=== PATIENT | female | born 1990 | race Caucasian/White ===

== ENCOUNTER → 2018-12-12 | Outpatient (CLI) | payer OTHER ==
--- NOTE | 2018-12-12 11:37 | REPVR ---
EXAM: MR Head Without Contrast EXAM DATE/TIME: 12/12/2018 9:32 AM CLINICAL HISTORY: 28 years old, female; Other: Headache; Additional info: Migraine without aura TECHNIQUE: Imaging protocol: MR of the head without contrast. COMPARISON: No relevant prior studies available. FINDINGS: Brain: No evidence of acute cortical infarct. No evidence of restricted diffusion. No abnormal magnetic susceptibility signal changes. No intracranial hemorrhage. Prominent CSF equivalent spaces in the right frontal white matter at the high and superventricular levels. Correlation with postcontrast imaging recommended to be certain that there is not an underlying AVM. Differential diagnosis would include prominent perivascular spaces. Slightly prominent perivascular spaces in the sublenticular region bilaterally. Background of mild confluent nonspecific Flair/T2 hyperintensities within the cerebral white matter.This has a broad differential diagnosis including migrainous angiopathy, premature small vessel ischemic change or demyelinating disease. Please correlate clinically. No basal ganglion, thalami, midbrain, brainstem or cerebellar mass. No Chiari malformation. No CP angle mass. Ventricles: The ventricular system is midline and appropriate in size. No hydrocephalus. Bones/joints: No suspicious marrow replacing lesions. Soft tissues: Normal. Sinuses: The demonstrated paranasal sinuses are free of air-fluid level or suspicious mass. Mastoid air cells: Mastoids are free of acute inflammatory change. Orbits: The optic chiasm is normal. No pituitary region mass. No suspicious orbital mass. Vasculature: Normal vascular flow voids are present. IMPRESSION: No evidence of acute ischemia, hemorrhage or mass effect. Prominent CSF equivalent spaces in the right frontal white matter at the high and superventricular levels. Correlation with postcontrast imaging recommended to be certain that there is not an underlying AVM. Differential diagnosis would include prominent perivascular spaces. Slightly prominent perivascular spaces in the sublenticular region bilaterally. Background of mild confluent nonspecific Flair/T2 hyperintensities within the cerebral white matter prominent for age. This has a broad differential diagnosis including migrainous angiopathy, premature small vessel ischemic change or demyelinating disease. Please correlate clinically. Electronically signed by: Galen Delacruz On 12/12/2018 11:37:05 AM
== END ==
LOC: M RAD 08:37
PROVIDERS: ATTEND Family Medicine
DX: G43.009 Migraine without aura, not intractable, without status migrainosus (principal); H81.10 Benign paroxysmal vertigo, unspecified ear

== ENCOUNTER 2020-10-24 21:52 | Emergency (ER) | payer OTHER ==
[~2020-10-24] VITALS: Ht 157.5 cm; Wt 75.0 kg
[2020-10-24] MEDS ORDERED: PROP10TA56 PO (22:05)
[2020-10-24] MEDS ORDERED: PROZ40CA PO (22:05)
[2020-10-24] MEDS ORDERED: ATIV1TAB10 PO (22:05)
[2020-10-24] MEDS ORDERED: LAMI200T PO (22:05)
[2020-10-24] MEDS ORDERED: AMBI10TA PO (22:05)
--- NOTE | 2020-10-25 00:22 | REPVR ---
PROCEDURE INFORMATION: Exam: XR Left Ankle Exam date and time: 10/24/2020 11:12 PM Age: 30 years old Clinical indication: Other: Fall and twisted; Additional info: Fall and twisted his ankle TECHNIQUE: Imaging protocol: XR Left ankle. Views: 3 or more views. COMPARISON: No relevant prior studies available. FINDINGS: Bones/joints: No fracture. No dislocation. Joint spaces are preserved. Soft tissues: Normal. IMPRESSION: No acute fracture. Electronically signed by: Josse Taylor On 10/25/2020 00:21:38 AM
[2020-10-25 01:45] VITALS: BP 123/67
== END 2020-10-25 01:47 | disposition home or self-care (01) ==
LOC: M ED 21:52
DX: S93.402A Sprain of unspecified ligament of left ankle, initial encounter (principal); X50.9XXA Other and unspecified overexertion or strenuous movements or postures, initial encounter; Y92.009 Unspecified place in unspecified non-institutional (private) residence as the place of occurrence of the external cause; Y93.89 Activity, other specified; Y99.8 Other external cause status; F31.9 Bipolar disorder, unspecified; F17.210 Nicotine dependence, cigarettes, uncomplicated; Z79.899 Other long term (current) drug therapy; Z88.8 Allergy status to other drugs, medicaments and biological substances; Z88.5 Allergy status to narcotic agent; Z87.820 Personal history of traumatic brain injury

== ENCOUNTER → 2021-02-27 | Outpatient (CLI) | payer OTHER ==
[~2021-02-27] MED LIST: AMBI10TA PO; ATIV1TAB10 PO; LAMI200T PO; PROP10TA56 PO; PROZ40CA PO
--- NOTE | 2021-02-27 09:30 | REP ---
INDICATION: MARYLIN BREAST PAIN. COMPARISON: None TECHNIQUE: Real-time sonographic evaluation of entire bilateral breasts performed. FINDINGS: No cystic or solid mass is seen. IMPRESSION: BIRADS/ACR category 1, negative whole breast ultrasound bilaterally. RECOMMENDATION: Clinical follow-up. <Electronically signed by Orlando Stahl > 02/27/21 0992
== END ==
LOC: M WHC 07:30
DX: N64.4 Mastodynia (principal)

== ENCOUNTER 2021-03-31 20:02 | Emergency (ER) | payer OTHER ==
[~2021-03-31] VITALS: Ht 160 cm; Wt 78.6 kg
[2021-03-31 20:03] VITALS: BP 119/81
[2021-03-31] MEDS ORDERED: METF-839 PO (20:09)
[2021-03-31] MEDS ORDERED: LITH300T2 PO (20:09)
--- OUTSIDE RECORDS SUMMARY | 2021-03-31 20:09 | CCD ---
Author Author [facility] Address Unknown Phone Unavailable Care Team Providers Care Bioinformatics Programmer Name Role Phone Reg Lucia Unavailable PROBLEMS ALLERGIES ENCOUNTERS from 1988 to 2021-03-04 IMMUNIZATIONS SOCIAL HISTORY REASON FOR REFERRAL No Information VITAL SIGNS MEDICATIONS PROCEDURES No Information RESULTS No Results REASON FOR VISIT MEDICAL (GENERAL) HISTORY Goals Section Health Concerns MEDICAL EQUIPMENT No Information MENTAL STATUS FUNCTIONAL STATUS ASSESSMENTS No Information PLAN OF TREATMENT Insurance Providers
--- OUTSIDE RECORDS SUMMARY | 2021-03-31 20:09 | CCD ---
Author Author [facility] Organization [facility] Address Unknown Phone Unavailable Care Team Providers Care Neurology Physician Name Role Phone Alessandra Lipscomb Unavailable PROBLEMS Type Condition ICD9-CM Code [id number] Code Onset Dates Condition S tatus W/U Status Risk SNOMED Code Notes Problem Adjustment disorder with mixed anxiety and depressed mood F43.23 Active confirmed 41814805 Problem Mixed hyperlipidemia E78.2 Active confirmed 111794072 Problem Allergic rhinitis due to pollen, unspecified seasonality J30.1 Active confirmed 60262585 Problem Dyspareunia in female N94.10 Active confirmed 90617989 Problem Bipolar 1 disorder, depressed, mild F31.31 Acti ve confirmed 68125474 Problem Migraine without aura and without status migrain osus, not intractable G43.009 Active confirmed 181482204 Problem PCOS (polycystic ovarian syndrome) E28.2 Activ e confirmed 915580357 Problem Adjustment disorder with anxiety F43.22 Active conf irmed 10797298 Problem History of bulimia Z86.59 Active confirmed 1 86292285860817 Problem Severe depression F32.2 Active confirmed 31 4851831 Problem Bipolar 1 disorder F31.9 Active confirmed 3 02763062 By History and Client report Problem Panic F41.0 Active confirmed 29552630 Problem Dysplasia of cervix, high grade ALFONSO 2 N87.1 Ac tive confirmed 121147505 Problem Moderately severe depression F32.2 Active confirme d 753904040 Problem Cervical high risk HPV (human papillomavirus) test positiv e R87.810 Active confirmed 001145495 Problem Cervical high risk human papillomavirus (HPV) DN A test positive R87.810 Active confirmed 081072189 Problem Vitamin D deficiency E55.9 Active confirmed 29414203 Problem Anorexia nervosa F50.00 Active confirmed 568 16125 Problem Anorexia nervosa with bulimia F50.02 Active confirm ed 80121417 Problem Unspecified mood [affective] disorder F39 Ac tive confirmed 37939316 Problem Borderline personality disorder F60.3 Active confi rmed 31516185 ALLERGIES Allergen (clinical drug ingredient) Drug/Non Drug Allergy do cumented on EMR Reaction Allergy Type Onset Date Status fentanyl Fentanyl([facility] Code:[address]-50) Shallow breathing Drug Al lergy Active Vicodin nausea Drug Allergy Active hydromorphone Dilaudid([facility] Code:[address]-66) Pain Drug Allerg y Active ibuprofen Ibuprofen([facility] Code:[address]-16) Nausea Drug Allergy Active ENCOUNTERS from 1988 to 2021-03-17 Encounter Location Date Provider Diagnosis [address] [address] Feb, Alessandra Deisi Vitamin D deficiency E55.9 IMMUNIZATIONS Vaccine Route Administration Date Status Influenza preservative free IM Intramuscular Mar 04, 2020 Adm inistered Influenza preservative free IM Intramuscular Feb 17, 2019 Adm inistered Influenza preservative free IM Intramuscular May 31, 2018 Adm inistered SOCIAL HISTORY Tobacco Use: Social History Observation Description Date Details (start date - stop date) Current Smoker Sex Assigned At : Social History Observation Description Sex Assigned At Female Alcohol Screen Question Answer Notes Did you have a drink containing alcohol in the past year? Ye s Points 1 Interpretation Negative How often did you have a drink containing alcohol in t he past year? Monthly or less (1 point) Tobacco Use/Smoking Question Answer Notes Are you a current smoker Are you interested in quitting? Thinking about quitting How many cigarettes a day do you smoke? 11-20 How soon after you wake up do you smoke your first cigarette ? 6-30 minutes How often do you smoke cigarettes? every day REASON FOR REFERRAL No Information VITAL SIGNS No information MEDICATIONS Medication SIG (Take, Route, Frequency, Duration) Notes Start Da te End Date Status Ergocalciferol 1.25 MG (57750 UT) 1 capsule Orally qweek 2 May, Active LaMICtal 100 MG 1 tablet Orally Once a day for 30 days Oct, Active Fluticasone Propionate 50 MCG/ACT 1 spray in each nost ril Nasally Once a day for 30 day(s) Dec, Not-Taking Ativan 0.5 MG 1 tablet at bedtime as needed Orally Once a day: MDD 1 tab 11 Apr, 2020 Active lamoTRIgine 200 MG 1 tablet Orally qd May, Active PROzac 20 MG 3 capsule Orally Once a day Active metFORMIN HCl 500 MG 1 tablet with a meal Orally Once a day for 30 days Feb, Active [place] Carbonate 300 MG 1 tablet at bedtime Orally Once a day Oct, Active PROCEDURES No Information RESULTS No Results REASON FOR VISIT refill MEDICAL (GENERAL) HISTORY Type Description Date Medical History Bipolar Depression Medical History PCOS Medical History HPV - always has abnormal Paps Medical History MRSA - abcesses on buttocks and leg Medical History Esophageal ulcer Surgical History Kidney Stone Removal 03/2017 Surgical History Cholecystectomy 07/2016 Surgical History Hernia repair 2000 Surgical History Leep procedure Surgical History Tubal ligation 04/2020 Hospitalization History Migraines and fluid on brain Hospitalization History child Goals Section No Information Health Concerns No Information MEDICAL EQUIPMENT No Information MENTAL STATUS No Information FUNCTIONAL STATUS No Information ASSESSMENTS Encounter Date Diagnosis Assessment Notes Treatment Notes Treatm ent Clinical Notes Feb, Vitamin D deficiency (ICD-10 - E55.9) PLAN OF TREATMENT Medication Medication Name Sig Start Date Stop Date Ergocalciferol 1.25 MG (65499 UT) 1 capsule Orally qweek May, PROzac 20 MG 3 capsule Orally Once a day metFORMIN HCl 500 MG 1 tablet with a meal Orally Once a day for 30 days Feb, lamoTRIgine 200 MG 1 tablet Orally qd May, Ativan 0.5 MG 1 tablet at bedtime as needed Orally Onc e a day: MDD 1 tab Apr, [place] Carbonate 300 MG 1 tablet at bedtime Orally Once a day 2 3 Oct, 2020 Next Appt Details Provider Name:Mavis Argueta, 2021-02 09:00:00 AM, [address] [place] [address], [phone], Provider Name:Alessandra Lipscomb, 04-04 09:00:00 AM, [address] [place] [address], [phone], Provider Name:Mavis Argueta, 2021-03 09:00:00 AM, [address] [place], [phone], Provider Name:Reg Lucia, 2022-02-10 0 1:00:00 PM, [address] [place], [address], Insurance Providers Payer Name Payer Address Payer Phone Insured Name Patient Relati onship to Insured Coverage Start Date Coverage End Date [facility] [employer] MEDICAID [address] [facility] [id number] Josephine Glover
[2021-03-31] MEDS ORDERED: ERGO500029 PO (20:10)
--- OUTSIDE RECORDS SUMMARY | 2021-03-31 20:10 | CCD ---
Author Author [facility] Organization [facility] Address Unknown Phone Unavailable Care Team Providers Care Soils Analyst Name Role Phone Larkin, Fracisco PA Unavailable Unavailable Larkin, Fracisco PA Unavailable Unavailable Larkin, Fracisco PA Unavailable Unavailable Larkin, Fracisco PA Unavailable Unavailable Larkin, Fracisco PA Unavailable Unavailable Larkin, Fracisco PA Unavailable Unavailable Larkin, Fracisco PA Unavailable Unavailable Larkin, Fracisco PA Unavailable Unavailable Larkin, Fracisco PA Unavailable Unavailable Larkin, Fracisco PA Unavailable Unavailable Larkin, Fracisco PA Unavailable Unavailable Larkin, Fracisco PA Unavailable Unavailable Larkin, Fracisco PA Unavailable Unavailable EMILIA RIVAS MD Unavailable Unavailable EMILIA RIVAS MD Unavailable Unavailable EMILIA RIVAS MD Unavailable Unavailable EMILIA RIVAS MD Unavailable Unavailable EMILIA RIVAS MD Unavailable Unavailable EMILIA RIVAS MD Unavailable Unavailable EMILIA RIVAS MD Unavailable Unavailable EMILIA RIVAS MD Unavailable Unavailable EMILIA RIVAS MD Unavailable Unavailable EMILIA RIVAS MD Unavailable Unavailable EMILIA RIVAS MD Unavailable Unavailable EMILIA RIVAS MD Unavailable Unavailable EMILIA RIVAS MD Unavailable Unavailable MARY, J ESTELA DO Unavailable Unavailable MARY, J ESTELA DO Unavailable Unavailable MARY, J ESTELA DO Unavailable Unavailable MARY, J ESTELA DO Unavailable Unavailable MARY, J ESTELA DO Unavailable Unavailable MARY, J ESTELA DO Unavailable Unavailable MARY, J ESTELA DO Unavailable Unavailable MARY, J ESTELA DO Unavailable Unavailable MARY, J ESTELA DO Unavailable Unavailable MARY, J ESTELA DO Unavailable Unavailable MARY, J ESTELA DO Unavailable Unavailable MARY, J ESTELA DO Unavailable Unavailable MARY, J ESTELA DO Unavailable Unavailable MARY, J ESTELA DO Unavailable Unavailable MARY, J ESTELA DO Unavailable Unavailable MARY, J ESTELA DO Unavailable Unavailable MARY, J ESTELA DO Unavailable Unavailable MARY, J ESTELA DO Unavailable Unavailable MARY, J ESTELA DO Unavailable Unavailable MARY, J ESTELA DO Unavailable Unavailable MARY, J ESTELA DO Unavailable Unavailable MARY, J ESTELA DO Unavailable Unavailable MARY, J ESTELA DO Unavailable Unavailable MARY, J ESTELA DO Unavailable Unavailable MARY, J ESTELA DO Unavailable Unavailable MARY, J ESTELA DO Unavailable Unavailable MARY, J ESTELA DO Unavailable Unavailable IVEY SR, JESENIA WNAG MD Unavailable Unavailable IVEY SR, JESENIA WANG MD Unavailable Unavailable IVEY SR, JESENIA WANG MD Unavailable Unavailable IVEY SR, JESENIA WANG MD Unavailable Unavailable IVEY SR, JESENIA WANG MD Unavailable Unavailable IVEY SR, JESENIA WANG MD Unavailable Unavailable IVEY SR, JESENIA WANG MD Unavailable Unavailable IVEY SR, JESENIA WANG MD Unavailable Unavailable IVEY SR, JESENIA WANG MD Unavailable Unavailable IVEY SR, JESENIA WANG MD Unavailable Unavailable IVEY SR, JESENIA WANG MD Unavailable Unavailable IVEY SR, JESENIA WAGN MD Unavailable Unavailable IVEY SR, JESENIA WANG MD Unavailable Unavailable IVEY SR, JESENIA WANG MD Unavailable Unavailable IVEY SR, JESENIA WANG MD Unavailable Unavailable IVEY SR, JESENIA WANG MD Unavailable Unavailable IVEY SR, JESENIA WANG MD Unavailable Unavailable IVEY SR, JESENIA WANG MD Unavailable Unavailable IVEY SR, JESENIA WANG MD Unavailable Unavailable IVEY SR, JESENIA WANG MD Unavailable Unavailable IVEY SR, JESENIA WANG MD Unavailable Unavailable IVEY SR, JESENIA WANG MD Unavailable Unavailable IVEY SR, JESENIA WANG MD Unavailable Unavailable IVEY SR, JESENIA WANG MD Unavailable Unavailable IVEY SR, JESENIA WANG MD Unavailable Unavailable IVEY SR, JESENIA WANG MD Unavailable Unavailable IVEY SR, JESENIA WANG MD Unavailable Unavailable IVEY SR, JESENIA WANG MD Unavailable Unavailable IVEY SR, JESENIA WANG MD Unavailable Unavailable IVEY SR, JESENIA WANG MD Unavailable Unavailable IVEY SR, JESENIA WANG MD Unavailable Unavailable IVEY SR, JESENIA WANG MD Unavailable Unavailable IVEY SR, JESENIA WANG MD Unavailable Unavailable IVEY SR, JESENIA WANG MD Unavailable Unavailable IVEY SR, JESENIA WANG MD Unavailable Unavailable IVEY SR, JESENIA WANG MD Unavailable Unavailable IVEY SR, JESENIA WANG MD Unavailable Unavailable IVEY SR, JESENIA WANG MD Unavailable Unavailable IVEY SR, JESENIA WANG MD Unavailable Unavailable IVEY SR, JESENIA WANG MD Unavailable Unavailable IVEY SR, JESENIA WANG MD Unavailable Unavailable IVEY SR, JESENIA WAGN MD Unavailable Unavailable IVEY SR, JESENIA WANG MD Unavailable Unavailable IVEY SR, JESENIA WANG MD Unavailable Unavailable IVEY SR, JESENIA WANG MD Unavailable Unavailable IVEY SR, JESENIA WANG MD Unavailable Unavailable IVEY SR, JESENIA WANG MD Unavailable Unavailable IVEY SR, JESENIA WANG MD Unavailable Unavailable IVEY SR, JESENIA WANG MD Unavailable Unavailable IVEY SR, JESENIA WANG MD Unavailable Unavailable IVEY SR, JESENIA WANG MD Unavailable Unavailable IVEY SR, JESENIA WANG MD Unavailable Unavailable IVEY SR, JESENIA WANG MD Unavailable Unavailable IVEY SR, JESENIA WANG MD Unavailable Unavailable IVEY SR, JESENIA WANG MD Unavailable Unavailable IVEY SR, JESENIA WANG MD Unavailable Unavailable RIVAS, EMILIA Unavailable Unavailable Shiraz, M Brittani PA-C Unavailable Unavailable Shiraz, M Brittani PA-C Unavailable Unavailable Shiraz, M Brittani PA-C Unavailable Unavailable Shiraz, M Brittani PA-C Unavailable Unavailable Shiraz, M Brittani PA-C Unavailable Unavailable Shiraz, M Brittani PA-C Unavailable Unavailable Shiraz, M Brittani PA-C Unavailable Unavailable Shiraz, M Brittani PA-C Unavailable Unavailable Shiraz, M Brittani PA-C Unavailable Unavailable Shiraz, M Brittani PA-C Unavailable Unavailable Shiraz, M Brittani PA-C Unavailable Unavailable Shiraz, M Brittani PA-C Unavailable Unavailable Shiraz, M Brittani PA-C Unavailable Unavailable Shiraz, M Brittani PA-C Unavailable Unavailable Shiraz, M Brittani PA-C Unavailable Unavailable Shiraz, M Brittani PA-C Unavailable Unavailable Shiraz, M Brittani PA-C Unavailable Unavailable Shiraz, M Brittani PA-C Unavailable Unavailable Shiraz, M Brittani PA-C Unavailable Unavailable Shiraz, M Brittani PA-C Unavailable Unavailable Shiraz, M Brittani PA-C Unavailable Unavailable Shiraz, M Brittani PA-C Unavailable Unavailable Shiraz, M Brittani PA-C Unavailable Unavailable Shiraz, M Brittani PA-C Unavailable Unavailable Shiraz, M Brittani PA-C Unavailable Unavailable Shiraz, M Brittani PA-C Unavailable Unavailable Shiraz, M Brittani PA-C Unavailable Unavailable Shiraz, M Brittani PA-C Unavailable Unavailable Shiraz, M Brittani PA-C Unavailable Unavailable Shiraz, M Brittani PA-C Unavailable Unavailable Shiraz, M Brittani PA-C Unavailable Unavailable Shiraz, M Brittani PA-C Unavailable Unavailable Shiraz, M Brittani PA-C Unavailable Unavailable Shiraz, M Brittani PA-C Unavailable Unavailable Shiraz, M Brittani PA-C Unavailable Unavailable Shiraz, M Brittani PA-C Unavailable Unavailable Shiraz, M Brittani PA-C Unavailable Unavailable Shiraz, M Brittani PA-C Unavailable Unavailable DESJARLAIS, BERTIN ORTHOPEDIC SHOE FITTER Unavailable Unavailable DESJARLAIS, BERTIN ORTHOPEDIC SHOE FITTER Unavailable Unavailable DESJARLAIS, BERTIN ORTHOPEDIC SHOE FITTER Unavailable Unavailable DESJARLAIS, BERTIN ORTHOPEDIC SHOE FITTER Unavailable Unavailable DESJARLAIS, BERTIN ORTHOPEDIC SHOE FITTER Unavailable Unavailable DESJARLAIS, BERTIN ORTHOPEDIC SHOE FITTER Unavailable Unavailable DESJARLAIS, BERTIN ORTHOPEDIC SHOE FITTER Unavailable Unavailable DESJARLAIS, BERTIN ORTHOPEDIC SHOE FITTER Unavailable Unavailable DESJARLAIS, BERTIN ORTHOPEDIC SHOE FITTER Unavailable Unavailable DESJARLAIS, BERTIN ORTHOPEDIC SHOE FITTER Unavailable Unavailable YULIET HANSEN Unavailable Unavailable Byrnes, Lia Unavailable Byrnes, Lia Unavailable Yuliet Hansen Unavailable Yuliet Hansen Unavailable Saman, Orion Del Angele PHYSICIAN PEDIATRICIAN-C Unavailable Unavailabl e Saman, Reginah W Katerina PHYSICIAN PEDIATRICIAN-C Unavailable Unavailabl e Saman, Reginah W Katerina PHYSICIAN PEDIATRICIAN-C Unavailable Unavailabl e Saman, Reginah W Katerina PHYSICIAN PEDIATRICIAN-C Unavailable Unavailabl e Saman, Reginah W Katerina PHYSICIAN PEDIATRICIAN-C Unavailable Unavailabl e Saman, Regkavitha W Katerina PHYSICIAN PEDIATRICIAN-C Unavailable Unavailabl e Saman, Regkavitha W Katerina PHYSICIAN PEDIATRICIAN-C Unavailable Unavailabl e Saman, Orion W Katerina PHYSICIAN PEDIATRICIAN-C Unavailable Unavailabl e Saman, Orion W Katerina PHYSICIAN PEDIATRICIAN-C Unavailable Unavailabl e Saman, Regkavitha W Katerina PHYSICIAN PEDIATRICIAN-C Unavailable Unavailabl e Saman, Orion W Katerina PHYSICIAN PEDIATRICIAN-C Unavailable Unavailabl e Saman, Reginacaren W Katerina PHYSICIAN PEDIATRICIAN-C Unavailable Unavailabl e Saman, Reggladys W Katerina PHYSICIAN PEDIATRICIAN-C Unavailable Unavailabl e Saman, Orion W Katerina PHYSICIAN PEDIATRICIAN-C Unavailable Unavailabl e Saman, Orion W Katerina PHYSICIAN PEDIATRICIAN-C Unavailable Unavailabl e Saman, Gertrude W Katerina PHYSICIAN PEDIATRICIAN-C Unavailable Unavailabl e Saman, Gertrude W Katerina PHYSICIAN PEDIATRICIAN-C Unavailable Unavailabl e Saman, Gertrude W Katerina PHYSICIAN PEDIATRICIAN-C Unavailable Unavailabl e Saman, Gertrude W Katerina PHYSICIAN PEDIATRICIAN-C Unavailable Unavailabl e Saman, Gertrude W Katerina PHYSICIAN PEDIATRICIAN-C Unavailable Unavailabl e Saman, Gertrude W Katerina PHYSICIAN PEDIATRICIAN-C Unavailable Unavailabl e Saman, Gertrude W Katerina PHYSICIAN PEDIATRICIAN-C Unavailable Unavailabl e Saman, Reggladys W Katerina PHYSICIAN PEDIATRICIAN-C Unavailable Unavailabl e Saman, Reggladys W Katerina PHYSICIAN PEDIATRICIAN-C Unavailable Unavailabl e Saman, Reggladys W Katerina PHYSICIAN PEDIATRICIAN-C Unavailable Unavailabl e Saman, Regina W Katerina PHYSICIAN PEDIATRICIAN-C Unavailable Unavailabl e Saman, Reggladys W Katerina PHYSICIAN PEDIATRICIAN-C Unavailable Unavailabl e Saman, Reggladys W Katerina PHYSICIAN PEDIATRICIAN-C Unavailable Unavailabl e Saman, Reggladys W Katerina PHYSICIAN PEDIATRICIAN-C Unavailable Unavailabl e Saman, Reggladys W Katerina PHYSICIAN PEDIATRICIAN-C Unavailable Unavailabl e Saman, Regkavitha W Katerina PHYSICIAN PEDIATRICIAN-C Unavailable Unavailabl e Saman, Orion W Katerina PHYSICIAN PEDIATRICIAN-C Unavailable Unavailabl e ESTEBAN, PRYJMA ANTHONY Unavailable Unavailable ESTEBAN, PRYJMA ANTHONY MD Unavailable Unavailable ESTEBAN, PRYJMA ANTHONY MD Unavailable Unavailable ESTEBAN, PRYJMA ANTHONY MD Unavailable Unavailable ESTEBAN, PRYJMA ANTHONY MD Unavailable Unavailable ESTEBAN, PRYJMA ANTHONY MD Unavailable Unavailable ESTEBAN, PRYJMA ANTHONY MD Unavailable Unavailable ESTEBAN, PRYJMA ANTHONY MD Unavailable Unavailable ESTEBAN, PRYJMA ANTHONY MD Unavailable Unavailable ESTEBAN, PRYJMA ANTHONY MD Unavailable Unavailable ESTEBAN, PRYJMA ANTHONY MD Unavailable Unavailable ESTEBAN, PRYJMA ANTHONY MD Unavailable Unavailable ESTEBAN, PRYJMA ANTHONY MD Unavailable Unavailable ESTEBAN, PRYJMA ANTHONY MD Unavailable Unavailable ESTEBAN, PRYJMA ANTHONY MD Unavailable Unavailable ESTEBAN, PRYJMA ANTHONY MD Unavailable Unavailable ESTEBAN, PRYJMA ANTHONY MD Unavailable Unavailable ESTEBAN, PRYJMA ANTHONY MD Unavailable Unavailable ESTEBAN, PRYJMA ANTHONY MD Unavailable Unavailable ESTEBAN, PRYJMA ANTHONY MD Unavailable Unavailable ESTEBAN, PRYJMA ANTHONY MD Unavailable Unavailable ESTEBAN, PRYJMA ANTHONY MD Unavailable Unavailable ESTEBAN, PRYJMA ANTOHNY MD Unavailable Unavailable ESTEBAN, PRYJMA ANTHONY MD Unavailable Unavailable ESTEBAN, PRYJMA ANTHONY MD Unavailable Unavailable ESTEBAN, PRYJMA ANTHONY MD Unavailable Unavailable ESTEBAN, PRYJMA ANTHONY MD Unavailable Unavailable ESTEBAN, PRYJMA ANTHONY MD Unavailable Unavailable ESTEBAN, PRYJMA ANTHONY MD Unavailable Unavailable ESTEBAN, PRYJMA ANTHONY MD Unavailable Unavailable Corbine, Delia Unavailable Corbine, Delia Unavailable Corbine, Delia Unavailable CORBINE, S DELIA Unavailable Unavailable CORBINE, S DELIA Unavailable Unavailable Mavis Argueta Unavailable Mavis Argueta Unavailable Cristy Lcuia PHYSICIAN PEDIATRICIAN Unavailable Unavailable Mitchell, Cristy Reg PHYSICIAN PEDIATRICIAN Unavailable Unavailable Rea, Cristy Reg PHYSICIAN PEDIATRICIAN Unavailable Unavailable Mitchell, Cristy Reg PHYSICIAN PEDIATRICIAN Unavailable Unavailable Mitchell, Cristy Reg PHYSICIAN PEDIATRICIAN Unavailable Unavailable Rea, Cristy Reg PHYSICIAN PEDIATRICIAN Unavailable Unavailable Mitchell, Cristy Reg PHYSICIAN PEDIATRICIAN Unavailable Unavailable Mitchell, Cristy Reg PHYSICIAN PEDIATRICIAN Unavailable Unavailable Rea, Cristy Reg PHYSICIAN PEDIATRICIAN Unavailable Unavailable Mitchell, Cristy Reg PHYSICIAN PEDIATRICIAN Unavailable Unavailable Mitchell, Cristy Reg PHYSICIAN PEDIATRICIAN Unavailable Unavailable Rea, Cristy Reg PHYSICIAN PEDIATRICIAN Unavailable Unavailable Rea, Cristy Reg PHYSICIAN PEDIATRICIAN Unavailable Unavailable Mitchell, Cristy Reg PHYSICIAN PEDIATRICIAN Unavailable Unavailable Re-disclosure Warning The records that you are about to access may contain information from federally-assisted alcohol or drug abuse programs. If such information is present, then the following federally mandated warning applies: This information has been disclosed to you from records protected by federal confidentiality rules (42 CFR part 2). The federal rules prohibit you from making any further disclosure of this information unless further disclosure is expressly permitted by the written consent of the person to whom it pertains or as otherwise permitted by 42 CFR part 2. A general authorization for the release of medical or other information is NOT sufficient for this purpose. The Federal rules restrict any use of the information to criminally investigate or prosecute any alcohol or drug abuse patient.The records that you are about to access may contain highly sensitive health information, the redisclosure of which is protected by Article 27-F of the [facility] Public Health law. If you continue you may have access to information: Regarding HIV / AIDS; Provided by facilities licensed or operated by the [facility] Office of Mental Health; or Provided by the [facility] Office for People With Developmental Disabilities. If such information is present, then the following [facility] mandated warning applies: This information has been disclosed to you from confidential records which are protected by state law. State law prohibits you from making any further disclosure of this information without the specific written consent of the person to whom it pertains, or as otherwise permitted by law. Any unauthorized further disclosure in violation of state law may result in a fine or snf sentence or both. A general authorization for the release of medical or other information is NOT sufficient authorization for further disc losure. Allergies and Adverse Reactions Type Description Substance Reaction Status Data Source(s ) Drug allergy hydromorphone hydromorphone SEVERE PAIN [facility] Drug allergy acetaminophen acetaminophen SEVERE N/V U [facility] Drug allergy hydrocodone hydrocodone SEVERE N/V [facility] Drug allergy Drug allergy TRAZADONE "PANIC ATTACKS" U [facility] Drug allergy fentanyl fentanyl SHALLOW BREATHING [facility] Encounters Encounter Providers Location Date Indications Data Source(s ) Outpatient Attender: Mavis Argueta 03/25/2021 09:05:00 AM [facility] Outpatient [facility] 03/17/2021 12:00:00 AM [place] [id number] ([facility]) Outpatient Attender: BERTIN CLARK NP 03/14/2021 08: 50:00 AM [facility] Outpatient Attender: Mavis Argueta 03/11/2021 09:02:00 AM [facility] Outpatient Attender: Mavis Argueta 02/25/2021 09:00:00 AM [facility] Outpatient Attender: BERTIN CLARK NP 02/13/2021 08: 26:00 AM [facility] Outpatient Attender: Mavis Argueta 02/11/2021 09:05:00 AM [facility] Outpatient Attender: Mavis Argueta 02/04/2021 01:02:00 PM [facility] Outpatient Attender: Reg Lucia FNPReferrer: Andressa Weldon PA-C [facility] 02/04/[facility]21 11:28:00 AM [facility] 02/04/2021 11:28:00 AM [facility] Outpatient Attender: BERTIN CLARK NP 01/08/2021 10: 00:00 AM [facility] Outpatient Attender: BERTIN CLARK NP 12/17/2020 08: 26:00 AM [facility] Outpatient Attender: BERTIN CLARK NP 11/15/2020 10: 40:00 AM [facility] Outpatient Attender: Lia Byrnes 10/29/2020 09:04:00 AM [facility] Outpatient Attender: Lia Byrnes 10/21/2020 11:00:00 AM [facility] Outpatient Attender: BERTIN CLARK NP 10/10/2020 01: 20:00 PM [facility] Outpatient Attender: Lia Byrnes 10/09/2020 03:00:00 PM [facility] Outpatient Attender: Delia Acuna 09/16/2020 08:04:00 AM [facility] Outpatient Attender: Delia Acuna 09/09/2020 08:03:00 AM [facility] Outpatient Attender: Delia Acuna 09/05/2020 11:00:00 AM [facility] Outpatient Attender: BERTIN CLARK NP 09/05/2020 09: 26:00 AM [facility] Outpatient Attender: Delia Shrestha: DELIA ACUNA 08/19/2020 01:00:00 PM [facility] Outpatient Attender: Delia Shrestha: DELIA ACUNA 08/12/2020 08:02:00 AM [facility] Outpatient Attender: BERTIN CLARK NP 07/31/2020 09: 06:00 AM [facility] Outpatient Attender: Delia Shrestha: DELIA ACUNA 07/30/2020 02:00:00 PM [facility] Outpatient Attender: Delia Shrestha: DELIA ACUNA 07/15/2020 10:00:00 AM [facility] Outpatient Attender: BERTIN CLARK NP 07/10/2020 10: 40:00 AM [facility] Outpatient Attender: Delia Shrestha: DELIA ACUNA 07/08/2020 10:00:00 AM [facility] Outpatient Attender: BERTIN CLARK NP 06/21/2020 09: 36:00 AM [facility] Outpatient Attender: Delia Shrestha: DELIA ACUNA 06/17/2020 09:00:00 AM [facility] Outpatient Attender: BERTIN CLARK NPReferrer : Brittani Weldon PA-C EMERGENCY ROOM-LAB 06/13/2020 08:45:00 AM [facility] - 06/13/2020 08:45:00 AM [facility] Outpatient Attender: Delia Shrestha: DELIA ACUNA 06/10/2020 09:25:00 AM [facility] Outpatient Attender: BERTIN CLARK NP 06/07/2020 08: 34:00 AM [facility] Outpatient Attender: Delia Shrestha: DELIA ACUNA 06/03/2020 09:02:00 AM [facility] Outpatient Attender: ESTELA HERNANDEZ DO 05/23/2020 08:51:00 A M [facility] Outpatient [facility] 05/23/2020 12:00:00 AM [place] [id number] ([facility]) Outpatient Attender: Delia Shrestha: DELIA ACUNA 05/20/2020 09:03:00 AM [facility] Outpatient Attender: Delia Shrestha: DELIA ACUNA 05/13/2020 09:01:00 AM [facility] Outpatient Attender: ESTELA Dunham: Baldev Weldon PA-C EMERGENCY ROOM-[facility] 05/08/2020 07:17:00 AM [facility] - 05/08/2020 11:48:00 AM [facility] Patient discharged. Outpatient [facility] 05/08/2020 12:00:00 AM [place] [id number] ([facility]) Outpatient Attender: EMILIA RIVAS MDAttender: EMILIA RIVAS 05/06/2020 03:30:00 PM [facility] Outpatient Attender: Delia Shrestha: DELIA ACUNA 05/06/2020 09:04:00 AM [facility] Outpatient Attender: Yuliet HansenAttender: YULIET HANSEN 05/03/2020 07:15:00 PM [facility] Outpatient Attender: Katerina TOUREP-CReferrer: Me jackie Weldon PA-C EMERGENCY ROOM-LAB REF 05/03/2020 08:26:00 AM [facility] - 05/03/2020 08:26:00 AM [facility] Outpatient Attender: ESTELA Dunham: Baldev Weldon PA-C [facility] 05/01/2020 09:29:00 AM [facility] - 05/01/2020 09:29:00 AM [facility] Outpatient [facility] 05/01/2020 12:00:00 AM [facility] eCW ([facility]) Outpatient Attender: EMILIA RIVAS MDAttender: EMILIA RIVAS 04/29/2020 10:00:00 AM [facility] Emergency Attender: Fracisco Carreon: Brittani gallo PA-C 04/27/2020 10:07:00 AM EST - 04/27/2020 10:55:00 AM [facility] pital Patient discharged. Outpatient Attender: Delia Shrestha: DELIA ACUNA 04/25/2020 09:03:00 AM [facility] Outpatient Attender: Delia Shrestha: DELIA ACUNA 04/18/2020 08:13:00 AM [facility] Outpatient Attender: Delia Shrestha: DELIA ACUNA 04/12/2020 11:00:00 AM [facility] Outpatient Attender: Delia Shrestha: DELIA ACUNA 04/03/2020 01:00:00 PM [facility] Outpatient Attender: ESTELA HERNANDEZ DO 03/27/2020 09:22:00 A M [facility] Outpatient [facility] 03/27/2020 12:00:00 AM EST eCW1 ([facility]) Outpatient Attender: Yuliet HansenAttender: YULIET HANSEN 03/26/2020 09:04:00 AM [facility] Outpatient Attender: Brittani Weldon PA-C 03/25/2020 10:48 :00 AM [facility] Outpatient [facility] 03/25/2020 12:00:00 AM EST eCW1 ([facility]) Outpatient Attender: Brittani Weldon PA-C 03/04/2020 11:21 :00 AM [facility] Outpatient [facility] 03/04/2020 12:00:00 AM EST eCW1 ([facility]) Outpatient [facility] 03/04/2020 12:00:00 AM EST eCW1 ([facility]) Outpatient [facility] 02/29/2020 12:00:00 AM EST eCW1 ([facility]) Outpatient Attender: ESTELA Dunham: FELIPE IVEY SR 02/16/2020 08:30:00 AM [facility] Outpatient Attender: ESTELA HERNANDEZ DO 02/13/2020 10:27:00 A [facility] Outpatient [facility] 02/13/2020 12:00:00 AM EDT eCW1 ([facility]) Outpatient Attender: ESTELA Brookser: FELIPE IVEY SR EMERGENCY ROOM-SDC 01/23/2020 07:57:00 AM EDT - 01/23/2020 11:38:00 AM [facility] Patient discharged. Outpatient Attender: Katerina Davison PHYSICIAN PEDIATRICIAN-CReferrer: NEETA IVEY SR EMERGENCY ROOM-LAB REF 01/19/2020 09:05:00 AM EDT - 01/19/2020 09:05:00 AM [facility] Outpatient Attender: ESTELA HERNANDEZ DO 01/11/2020 11:26:00 A [facility] Outpatient Attender: Brittani Weldon PA-C 01/10/2020 08:22 :00 AM [facility] Outpatient Attender: ESTELA HERNANDEZ DO 12/07/2019 10:51:00 A [facility] Outpatient Attender: ANTHONY ORELLANA MD 11/16/2019 01:47:00 PM [facility] Outpatient Attender: ESTELA Brookser: FELIPE IVEY SR EMERGENCY ROOM-CLNSPECGYN 11/02/2019 08:22:00 AM EDT - 11/02/2019 08:22:00 AM [facility] Outpatient Attender: FELIPE IVEY SR 10/23/2019 08:04:00 AM [facility] Outpatient Attender: ESTELA Dunham: FELIPE IVEY SR 06/27/2018 08:00:00 AM [facility] Immunizations Vaccine Date Status Description Data Source(s) COVID-19 VACC, MRNA(PFIZER)/PF 10/15/2020 12:00:00 AM EDT completed [facility] COVID-19 VACC, MRNA(PFIZER)/PF 09/20/2020 12:00:00 AM EDT completed [facility] COVID-19 VACCINE Pfizer 09/20/2020 12:00:00 AM EDT completed [facility] Vaccine Series Complete: NOThis Data was Submitted to [facility] Via [employer]. New in 2011. IIV4 03/04/2020 11:52:00 AM EST completed eCW1 ([facility]) New in 2011. IIV4 03/04/2020 11:52:00 AM EST completed eCW1 ([facility]) New in 2011. IIV4 03/04/2020 11:52:00 AM EST completed eCW1 ([facility]) New in 2011. IIV4 03/04/2020 11:52:00 AM EST completed eCW1 ([facility]) New in 2011. IIV4 03/04/2020 11:52:00 AM EST completed eCW1 ([facility]) New in 2011. IIV4 03/04/2020 11:52:00 AM EST completed eCW1 ([facility]) New in 2011. IIV4 03/04/2020 11:52:00 AM EST completed eCW1 ([facility]) New in 2011. IIV4 03/04/2020 11:52:00 AM EST completed eCW1 ([facility]) New in 2011. II03/04/2020 11:52:00 AM EST completed eCW1 ([facility]) Medications Medication Brand Name Start Date Product Form Dose Route Admi nistrative Instructions Pharmacy Instructions Status Indications Reaction Description Data Source(s) Metformin hydrochloride 500 MG Oral Tablet metFORMIN H Cl 500 MG metFORMIN HCl 500 MG 03/14/2021 12:00:00 AM EST 1.0 {tablet_with_a_meal} active metFORMIN HCl 500 MG eCW1 ([facility] [place] Carbonate 300 MG Oral Tablet [place] Carbonate 300 M G 11/15/2020 12:00:00 AM EDT 1.0 {tablet_at_bedtime} active [place] Carbonate 300 MG eCW1 ([facility]) lamotrigine 100 MG Oral Tablet [Lamictal] LaMICtal 100 MG La MICtal 100 MG 11/15/2020 12:00:00 AM EDT 1.0 {tablet} active LaMICtal 100 MG eCW1 ([facility]) 200 mg 10/11/2020 12:00:00 AM EDT tablet 30 TAKE ONE TABLET BY MOUTH EVERY DAY TAKE ONE TABLET BY MOUTH EVERY DAY SOLD: 10/12/2020 [facility] 10 mg 10/11/2020 12:00:00 AM EDT tablet 10 TAKE ONE TABLET BY MOUTH AT BEDTIME NEEDED MAXIMUM DAILY DOSE = ONE TAKE ONE TABLET BY MOUTH AT BEDTIME NEEDED MAXIMUM DAILY DOSE = ONE SOLD: 10/12/2020 [facility] 20 mg 10/11/2020 12:00:00 AM EDT capsule 90 TAKE THREE CAPSULES BY MOUTH EVERY DAY TAKE THREE CAPSULES BY MOUTH EVERY DAY SOLD: 10/12/2020 [facility] 0.5 mg 10/11/2020 12:00:00 AM EDT tablet 30 TAKE ONE TABLET BY MOUTH AT BEDTIME NEEDED MAXIMUM DAILY DOSE = ONE TAKE ONE TABLET BY MOUTH AT BEDTIME NEEDED MAXIMUM DAILY DOSE = ONE SOLD: 10/12/2020 [facility] 10 mg 09/06/2020 12:00:00 AM EDT tablet 30 TAKE ONE TABLET BY MOUTH TWO TIMES A DAY NEEDED TAKE ONE TABLET BY MOUTH TWO TIMES A DAY NEEDED LEILA [facility] 200 mg 09/06/2020 12:00:00 AM EDT tablet 30 TAKE ONE TABLET BY MOUTH EVERY DAY TAKE ONE TABLET BY MOUTH EVERY DAY SOLD: 09/06/2020 [facility] 50 mg 09/06/2020 12:00:00 AM EDT capsule 15 TAKE ONE CAPSULE BY MOUTH EVERY DAY AT BEDTIME TAKE ONE CAPSULE BY MOUTH EVERY DAY AT BEDTIME SOLD: [facility] 0.5 mg 08/29/2020 12:00:00 AM EDT tablet 30 TAKE ONE TABLET BY MOUTH EVERY DAY AT BEDTIME NEEDED MAXIMUM DAILY DOSE = 1 TAKE ONE TABLET BY MOUTH EVERY DAY AT BEDTIME NEEDED MAXIMUM DAILY DOSE = 1 SOLD: 08/29/2020 [facility] 150 mg 07/31/2020 12:00:00 AM EDT tablet 30 TAKE 1 TABLET BY MOUTH ONCE A DAY TAKE 1 TABLET BY MOUTH ONCE A DAY SOLD: 08/30/2020 [facility] 25 mg 07/31/2020 12:00:00 AM EDT capsule 15 TAKE 1 CAPSULE BY MOUTH ONCE AT BEDTIME TAKE 1 CAPSULE BY MOUTH ONCE AT BEDTIME SOLD: 08/30/2020 [facility] 150 mg 07/31/2020 12:00:00 AM EDT tablet 30 TAKE 1 TABLET BY MOUTH ONCE A DAY TAKE 1 TABLET BY MOUTH ONCE A DAY SOLD: 08/01/2020 [facility] 25 mg 07/31/2020 12:00:00 AM EDT capsule 15 TAKE 1 CAPSULE BY MOUTH ONCE AT BEDTIME TAKE 1 CAPSULE BY MOUTH ONCE AT BEDTIME SOLD: 08/01/2020 [facility] 0.5 mg 07/23/2020 12:00:00 AM EDT tablet 30 TAKE ONE TABLET BY MOUTH AT BEDTIME NEEDED MAXIMUM DAILY DOSE = ONE TAKE ONE TABLET BY MOUTH AT BEDTIME NEEDED MAXIMUM DAILY DOSE = ONE SOLD: 07/31/2020 [facility] 20 mg 07/17/2020 12:00:00 AM EDT capsule 90 TAKE 3 CAPSULES BY MOUTH ONCE A DAY TAKE 3 CAPSULES BY MOUTH ONCE A DAY SOLD: 07/23/2020 [facility] quetiapine 100 MG Oral Tablet QUETIAPINE FUMARATE 07/10/2020 12: 00:00 AM EDT tablet 30 TAKE 1 TABLET BY MOUTH ONCE AT B EDTIME TAKE 1 TABLET BY MOUTH ONCE AT BEDTIME SOLD: 07/12/2020 [facility] 100 mg 07/10/2020 12:00:00 AM EDT tablet 30 TAKE 1 TABLET BY MOUTH ONCE A DAY TAKE 1 TABLET BY MOUTH ONCE A DAY SOLD: 07/12/2020 [facility] quetiapine 50 MG Oral Tablet QUETIAPINE FUMARATE 06/21/2020 12:0 0:00 AM EST tablet 30 TAKE ONE TABLET BY MOUTH EVERY D AY AT BEDTIME TAKE ONE TABLET BY MOUTH EVERY DAY AT BEDTIME SOLD: 06/25/2020 [facility] 20 mg 06/21/2020 12:00:00 AM EST capsule 90 TAKE THREE CAPSULES BY MOUTH EVERY DAY TAKE THREE CAPSULES BY MOUTH EVERY DAY SOLD: 06/25/2020 [facility] 1,250 mcg (50,000 unit) 06/21/2020 12:00:00 AM EST capsule 4 TAKE ONE CAPSULE BY MOUTH ONCE WEEKLY TAKE ONE CAPSULE BY MOUTH ONCE WEEKLY SOLD: 07/23/2020 [facility] Ergocalciferol 57519 UNT Oral Capsule Ergocalciferol 1 .25 MG (90247 UT) Ergocalciferol 1.25 MG (21659 UT) 06/21/2020 12:00:00 AM EST 1.0 {c apsule} active Ergocalciferol 1.25 MG (5 0000 UT) eCW1 ([facility]) 25 mg 06/21/2020 12:00:00 AM EST tablet 60 TAKE TWO TABLETS BY MOUTH EVERY DAY TAKE TWO TABLETS BY MOUTH EVERY DAY SOLD: 06/25/2020 [facility] 1,250 mcg (50,000 unit) 06/21/2020 12:00:00 AM EST capsule 4 TAKE ONE CAPSULE BY MOUTH ONCE WEEKLY TAKE ONE CAPSULE BY MOUTH ONCE WEEKLY SOLD: 06/25/2020 [facility] 1,250 mcg (50,000 unit) 06/21/2020 12:00:00 AM EST capsule 4 TAKE ONE CAPSULE BY MOUTH ONCE WEEKLY TAKE ONE CAPSULE BY MOUTH ONCE WEEKLY SOLD: 08/29/2020 [facility] 1 mg 06/07/2020 12:00:00 AM EST capsule 30 TAKE ONE CAPSULE BY MOUTH EVERY DAY AT BEDTIME TAKE ONE CAPSULE BY MOUTH EVERY DAY AT BEDTIME SOLD: 021 [facility] 25 mg 06/07/2020 12:00:00 AM EST tablet 30 TAKE ONE TABLET BY MOUTH EVERY DAY TAKE ONE TABLET BY MOUTH EVERY DAY SOLD: 06/08/2020 [facility] lamotrigine 25 MG Oral Tablet Lamotrigine 25 MG Lamotrigine 25 MG 06/07/2020 12:00:00 AM EST 1.0 {tablet} active La motrigine 25 MG eCW1 ([facility]) 0.5 mg 06/07/2020 12:00:00 AM EST tablet 30 TAKE ONE TABLET BY MOUTH AT BEDTIME NEEDED MAXIMUM DAILY DOSE = 1 TABLET TAKE ONE TABLET BY MOUTH AT BEDTIME NEEDED MAXIMUM DAILY DOSE = 1 TABLET SOLD: 06/08/2020 [facility] lamotrigine 200 MG Oral Tablet lamoTRIgine 200 MG lamoTRIgin e 200 MG 06/07/2020 12:00:00 AM EST 1.0 {tablet} active la moTRIgine 200 MG eCW1 ([facility]) Prazosin 1 MG Oral Capsule Prazosin HCl 1 MG Prazosin HCl 1 MG 06/07/2020 12:00:00 AM EST 1.0 {capsule_at_bedtime} active Prazosin HCl 1 MG eCW1 ([facility]) 20 mg 05/30/2020 12:00:00 AM EST capsule 60 TAKE 2 CAPSULES BY MOUTH ONCE DAILY TAKE 2 CAPSULES BY MOUTH ONCE DAILY SOLD: 06/04/2020 [facility] Acetaminophen 325 MG / Oxycodone Hydroch loride 5 MG Oral Tablet [Percocet] Percocet 5-325 MG Percocet 5-325 MG 05/08/2020 12:00:00 AM EST 1 .0 {tablet_as_needed} active Percocet 5-32 5 MG eCW1 ([facility]) 5-325 mg 05/08/2020 12:00:00 AM EST tablet 12 TAKE ONE TABLET BY MOUTH EVERY 6 HOURS NEEDED MAXIMUM DAILY DOSE = 4 TABLETS TAKE ONE TABLET BY MOUTH EVERY 6 HOURS NEEDED MAXIMUM DAILY DOSE = 4 TABLETS SOLD: 05/08/2020 [facility] Lorazepam 0.5 MG Oral Tablet [Ativan] Ativan 0.5 MG Ativan 0 .5 MG 05/06/2020 12:00:00 AM EST 1.0 {tablet_at_bedtime_as_needed} active Ativan 0.5 MG eCW1 ([facility]) 0.5 mg 05/06/2020 12:00:00 AM EST tablet 30 TAKE ONE TABLET BY MOUTH EVERY DAY AT BEDTIME NEEDED MAXIMUM DAILY DOSE = 1 TAKE ONE TABLET BY MOUTH EVERY DAY AT BEDTIME NEEDED MAXIMUM DAILY DOSE = 1 SOLD: 05/06/2020 [facility] Lorazepam 0.5 MG Oral Tablet [Ativan] Ativan 0.5 MG Ativan 0 .5 MG 05/06/2020 12:00:00 AM EST 1.0 {tablet_at_bedtime_as_needed} active Ativan 0.5 MG eCW1 ([facility]) Lorazepam 0.5 MG Oral Tablet [Ativan] Ativan 0.5 MG Ativan 0 .5 MG 05/06/2020 12:00:00 AM EST 1.0 {tablet_at_bedtime_as_needed} active Ativan 0.5 MG eCW1 ([facility]) Lorazepam 0.5 MG Oral Tablet [Ativan] Ativan 0.5 MG Ativan 0 .5 MG 05/06/2020 12:00:00 AM EST 1.0 {tablet_at_bedtime_as_needed} active Ativan 0.5 MG eCW1 ([facility]) 20 mg 05/05/2020 12:00:00 AM EST capsule 60 TAKE 2 CAPSULES BY MOUTH ONCE AT BEDTIME TAKE 2 CAPSULES BY MOUTH ONCE AT BEDTIME SOLD: 05/06/2020 [facility] Trazodone Hydrochloride 50 MG Oral Tablet Trazodone HC l 50 MG Trazodone HCl 50 MG 04/29/2020 12:00:00 AM EST active Trazodone HCl 50 MG eCW1 ([facility]) 50 mg 04/29/2020 12:00:00 AM EST tablet 30 TAKE 0.5 TO 1 TABLET BY MOUTH ONCE AT BEDTIME TAKE 0.5 TO 1 TABLET BY MOUTH ONCE AT BEDTIME SOLD: 05/01/19 21 [facility] Trazodone Hydrochloride 50 MG Oral Tablet Trazodone HC l 50 MG Trazodone HCl 50 MG 04/29/2020 12:00:00 AM EST active Trazodone HCl 50 MG eCW1 ([facility]) Trazodone Hydrochloride 50 MG Oral Tablet Trazodone HC l 50 MG Trazodone HCl 50 MG 04/29/2020 12:00:00 AM EST active Trazodone HCl 50 MG eCW1 ([facility]) 20 mg 03/11/2020 12:00:00 AM EST capsule 30 TAKE 1 CAPSULE BY MOUTH ONCE A DAY TAKE 1 CAPSULE BY MOUTH ONCE A DAY SOLD: 03/20/2020 [facility] 20 mg 03/11/2020 12:00:00 AM EST capsule 30 TAKE 1 CAPSULE BY MOUTH ONCE A DAY TAKE 1 CAPSULE BY MOUTH ONCE A DAY SOLD: 04/25/2020 [facility] 0.15-0.02 mgx21 /0.01 mg x 5 03/06/2020 12:00:00 AM EST tabl et 28 TAKE ONE TABLET BY MOUTH EVERY DAY TAKE ONE TABLET BY MOUTH EVERY DAY SOLD: 03/08/2020 [facility] 0.15-0.02 mgx21 /0.01 mg x 5 03/06/2020 12:00:00 AM EST tabl et 28 TAKE ONE TABLET BY MOUTH EVERY DAY TAKE ONE TABLET BY MOUTH EVERY DAY SOLD: 05/01/2020 [facility] Volnea 28 Day Pack 0.15-0.02 mgx21 /0.01 mg x 5 DESOGE STREL-ETHINYL ESTRADIOL/ETHINYL ESTRADIOL 03/06/2020 12:00:00 AM EST tablet 28 TAKE ONE TABLET BY MOUTH EVERY DAY TAKE ONE TABLET BY MOUTH EVERY DAY SOLD: 04/06/2020 [facility] Fluoxetine 10 MG Oral Capsule [Prozac] Prozac 10 MG Prozac 1 0 MG 03/04/2020 12:00:00 AM EST active Prozac 1 0 MG eCW1 ([facility]) Fluoxetine 10 MG Oral Capsule [Prozac] Prozac 10 MG Prozac 1 0 MG 03/04/2020 12:00:00 AM EST active Prozac 1 0 MG eCW1 ([facility]) Fluoxetine 10 MG Oral Capsule [Prozac] Prozac 10 MG Prozac 1 0 MG 03/04/2020 12:00:00 AM EST active Prozac 1 0 MG eCW1 ([facility]) Fluoxetine 10 MG Oral Capsule [Prozac] Prozac 10 MG Prozac 1 0 MG 03/04/2020 12:00:00 AM EST active Prozac 1 0 MG eCW1 ([facility]) Fluoxetine 10 MG Oral Capsule [Prozac] Prozac 10 MG Prozac 1 0 MG 03/04/2020 12:00:00 AM EST active Prozac 1 0 MG eCW1 ([facility]) 10 mg 03/04/2020 12:00:00 AM EST capsule 30 TAKE 1 CAPSULE BY MOUTH ONCE A DAY TAKE 1 CAPSULE BY MOUTH ONCE A DAY SOLD: 03/06/2020 [facility] Fluoxetine 10 MG Oral Capsule [Prozac] Prozac 10 MG Prozac 1 0 MG 03/04/2020 12:00:00 AM EST active Prozac 1 0 MG eCW1 ([facility]) Fluoxetine 10 MG Oral Capsule [Prozac] Prozac 10 MG Prozac 1 0 MG 03/04/2020 12:00:00 AM EST active Prozac 1 0 MG eCW1 ([facility]) 10 mg 03/04/2020 12:00:00 AM EST capsule 30 TAKE 1 CAPSULE BY MOUTH ONCE A DAY TAKE 1 CAPSULE BY MOUTH ONCE A DAY SOLD: 04/06/2020 [facility] Fluoxetine 10 MG Oral Capsule [Prozac] Prozac 10 MG Prozac 1 0 MG 03/04/2020 12:00:00 AM EST active Prozac 1 0 MG eCW1 ([facility]) Desogestrel-Ethinyl Estradiol 0.15-30 MG-MCG Desogestr el-Ethinyl Estradiol 0.15- 30 MG-MCG 02/29/2020 12:00:00 AM EST 1.0 {tablet} ac tive Desogestrel-Ethinyl Estradiol 0.15-30 MG-MCG eCW1 ([facility]) Desogestrel-Ethinyl Estradiol 0.15-30 MG-MCG Desogestr el-Ethinyl Estradiol 0.15- 30 MG-MCG 02/29/2020 12:00:00 AM EST 1.0 {tablet} ac tive Desogestrel-Ethinyl Estradiol 0.15-30 MG-MCG eCW1 ([facility]) Desogestrel-Ethinyl Estradiol 0.15-30 MG-MCG Desogestr el-Ethinyl Estradiol 0.15- 30 MG-MCG 02/29/2020 12:00:00 AM EST 1.0 {tablet} ac tive Desogestrel-Ethinyl Estradiol 0.15-30 MG-MCG eCW1 ([facility]) Desogestrel-Ethinyl Estradiol 0.15-30 MG-MCG Desogestr el-Ethinyl Estradiol 0.15- 30 MG-MCG 02/29/2020 12:00:00 AM EST 1.0 {tablet} ac tive Desogestrel-Ethinyl Estradiol 0.15-30 MG-MCG eCW1 ([facility]) Desogestrel-Ethinyl Estradiol 0.15-30 MG-MCG UNK 0 12:00:00 AM EST 1.0 {tablet} active Desogestrel-Ethinyl Estradiol 0.15-30 MG-MCG eCW1 ([facility]) Desogestrel-Ethinyl Estradiol 0.15-30 MG-MCG Desogestr el-Ethinyl Estradiol 0.15- 30 MG-MCG 02/29/2020 12:00:00 AM EST 1.0 {tablet} ac tive Desogestrel-Ethinyl Estradiol 0.15-30 MG-MCG eCW1 ([facility]) Desogestrel-Ethinyl Estradiol 0.15-30 MG-MCG Desogestr el-Ethinyl Estradiol 0.15- 30 MG-MCG 02/29/2020 12:00:00 AM EST 1.0 {tablet} ac tive Desogestrel-Ethinyl Estradiol 0.15-30 MG-MCG eCW1 ([facility]) 20 mg 01/16/2020 12:00:00 AM EDT tablet 90 TAKE ONE TABLET BY MOUTH EVERY EVENING TAKE ONE TABLET BY MOUTH EVERY EVENING SOLD: 04/25/2020 [facility] 20 mg 01/10/2020 12:00:00 AM EDT capsule 30 TAKE ONE CAPSULE BY MOUTH EVERY DAY TAKE ONE CAPSULE BY MOUTH EVERY DAY SOLD: 02/16/2020 [facility] 10 mg 01/02/2020 12:00:00 AM EDT tablet 30 TAKE 1 TABLET BY MOUTH ONCE A DAY TAKE 1 TABLET BY MOUTH ONCE A DAY SOLD: 04/25/2020 [facility] 10 mg 01/02/2020 12:00:00 AM EDT tablet 30 TAKE 1 TABLET BY MOUTH ONCE A DAY TAKE 1 TABLET BY MOUTH ONCE A DAY SOLD: 02/08/2020 [facility] 10 mg 01/02/2020 12:00:00 AM EDT tablet 30 TAKE 1 TABLET BY MOUTH ONCE A DAY TAKE 1 TABLET BY MOUTH ONCE A DAY SOLD: 03/20/2020 [facility] 0.18/0.215/0.25 mg-25 mcg 10/23/2019 12:00:00 AM EDT tablet 84 TAKE ONE TABLET BY MOUTH EVERY DAY TAKE ONE TABLET BY MOUTH EVERY DAY SOLD: 02/08/2020 [facility] Insurance Providers Payer name Policy type / Coverage type Policy ID Covered green party ID Covered green party's relationship to [place] Policy [place] Plan Information [facility] MEDICAID [id number] S [id number] [facility] MEDICAID [id number] S [id number] [facility] MEDICAID [id number] S [id number] [facility] [id number] S [id number] [facility](MCAID) O [id number] S [id number] [facility] [id number] [facility] [id number] [facility] MEDICAID [id number] S [id number] [facility] [id number] ANSI-Medicaid [id number] ANSI-Medicaid [id number] ANSI-Medicaid [id number] ANSI-Medicaid [id number] ANSI-Medicaid [id number] ANSI-Medicaid [id number] ANSI-Medicaid [id number] [facility] [id number] S [id number] ANSI-Medicaid [id number] ANSI-Medicaid [id number] [facility] [id number] SP [id number] ANSI-Medicaid [id number] [facility] [id number] S [id number] Problems, Conditions, and Diagnoses Code Display Name Description Problem Type Effective Dates Data Source(s) R87.810 Cervical high risk human papillomavirus (HPV) DNA test positive CERVICAL HIGH RISK HPV DNA TEST POSITIVE Diagnosis 02/04/2021 11:28:00 AM [facility] N64.4 Mastodynia MASTODYNIA Diagnosis 02/04/2021 11:28:00 AM [facility] Z11.3 Encounter for screening for infections with a predominantly sexual mode of transmission ENCNTR SCREEN FOR INFECTIONS W SEXL MODE Diagnosis 02/04/2021 11:28:00 AM [facility] N87.1 Moderate cervical dysplasia MODERATE CERVICAL DYSPLASI A Diagnosis 02/04/2021 11:28:00 AM [facility] Z01.411 Encounter for gynecological examination (general) (routine) with abnormal findings ENCNTR FOR QUARTER INSPECTOR EXAM (GENERAL) (ROUTINE) W ABNORMAL FIN DINGS Diagnosis 02/04/2021 11:28:00 AM [facility] R25.1 Tremor, unspecified TREMOR, UNSPECIFIED Diagnosis 0 01/08/2021 10:00:00 AM [facility] E55.9 Vitamin D deficiency, unspecified VITAMIN D DEFI CIENCY, UNSPECIFIED Diagnosis 01/08/2021 10:00:00 AM [facility] F50.02 Anorexia nervosa, binge eating/purging t ype ANOREXIA NERVOSA, BINGE EATING/PURGING TYPE Diagnosis 01/08/2021 10:00:00 AM [facility] l F31.9 Bipolar disorder, unspecified BIPOLAR DISORDER, UNSPEC IFIED Diagnosis 01/08/2021 10:00:00 AM [facility] F60.3 Borderline personality disorder BORDERLINE PERSONALITY DISORDER Diagnosis 01/08/2021 10:00:00 AM [facility] F41.0 Panic disorder [episodic paroxysmal anxi ety] PANIC DISORDER [EPISODIC PAROXYSMAL ANXIETY] Diagnosis 12/17/2020 08:26:00 AM [facility] F50.9 Eating disorder, unspecified EATING DISORDER, UNSPECIF IED Diagnosis 10/21/2020 11:00:00 AM [facility] F31.31 Bipolar disorder, current episode depres sed, mild BIPOLAR DISORDER, CURRENT EPISODE DEPRESSED, MILD Diagnosis 10/21/2020 11:00:00 AM [facility] F32.2 Major depressive disorder, s brody episode, severe without psychotic features MAJOR DEPRESSV DISORD, SINGLE EPSD, SEV W/O PSYCH FEATURES D iagnosis 09/16/2020 08:04:00 AM [facility] F43.23 Adjustment disorder with mixed anxiety a nd depressed mood ADJUSTMENT DISORDER WITH MIXED ANXIETY AND DEPRESS Diagnosis 09/05/2020 09:26:00 AM [facility] F31.4 Bipolar disorder, current ep isode depressed, severe, without psychotic features BIPOLAR DISORD, CRNT EPSD DEPRESS, SEV, W/O PSYCH FEATURES D iagnosis 07/15/2020 10:00:00 AM [facility] F43.22 Adjustment disorder with anxiety ADJUSTMENT DISO RDER WITH ANXIETY Diagnosis 07/08/2020 10:00:00 AM [facility] Z79.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 O THER ASSISTED (CURRENT) DRUG THERAPY Diagnosis 06/07/2020 08:34:00 [facility] Z30.2 Encounter for sterilization ENCOUNTER FOR STERILIZATIO N Diagnosis 05/23/2020 08:51:00 AM [facility] Z02.89 Encounter for other administrative exami nations ENCOUNTER FOR OTHER ADMINISTRATIVE EXAMINATIONS Diagnosis 05/23/2020 08:51:00 AM [facility] Z01.818 Encounter for other preprocedural examin ation ENCOUNTER FOR OTHER PREPROCEDURAL EXAMINATION Diagnosis 05/03/2020 08:26:00 AM [facility] G47.00 Insomnia, unspecified INSOMNIA, UNSPECIFIED Diagnosis 04/29/2020 10:00:00 AM [facility] F39 Unspecified mood [affective] disorder UNSPECIFIE D MOOD [AFFECTIVE] DISORDER Diagnosis 04/29/2020 10:00:00 AM [facility] Y93.01 Activity, walking, marching and hiking A CTIVITY, WALKING, MARCHING AND HIKING Diagnosis 04/27/2020 10:07:00 AM [facility] Y92.[address] and highw ay as the place of occurrence of the external cause [address] Diagnosis 01/02/2 021 10:07:00 AM [facility] X50.1XXA OVEREXERTION FROM PROLONGED STATIC OR AW KWARD POST OVEREXERTION FROM PROLONGED STATIC OR AWKWARD POST Diagnosis 04/27/2020 10:07:00 AM [facility] S93.492A Sprain of other ligament of left ankle, initial encounter SPRAIN OF OTHER LIGAMENT OF LEFT ANKLE, INITIAL EN Diagnosis 04/27/2020 10:07:00 AM [facility] S99.912A Unspecified injury of left ankle, initia l encounter UNSPECIFIED INJURY OF LEFT ANKLE, INITIAL ENCOUNTER Diagnosis 04/27/2020 10:07:00 AM [facility] Z30.09 Encounter for other general counseling a nd advice on contraception ENCOUNTER FOR OTH GENERAL CNSL AND ADVICE ON CONTRACEPTION Diagnosis 03/27/2020 09:22:00 AM [facility] Z86.59 Personal history of other mental and beh avioral disorders PERSONAL HISTORY OF OTHER MENTAL AND BEHAVIORAL DI Diagnosis 03/25/2020 10:48:0 0 AM [facility] Z71.89 Other specified counseling OTHER SPECIFIED COUNSELING Diagnosis 03/04/2020 11:21:00 AM [facility] Z23 Encounter for immunization ENCOUNTER FOR IMMUNIZATION Diagnosis 03/04/2020 11:21:00 AM [facility] R10.32 Left lower quadrant pain LEFT LOWER QUADRANT PAIN Diag nosis 02/16/2020 08:30:00 AM EDT [facility] R87.810 Cervical high risk HPV (human papillomav irus) test positive Cervical high risk HPV (human papillomavirus) test positive Problem 03/2021 12:00:00 AM EDT eCW1 ([facility]) F41.0 [id number] Panic Problem 07/31/2020 12:00:00 AM ED T eCW1 ([facility]) F60.3 [id number] Borderline personality disorder Problem 06/07/2020 12:00:00 AM EST eCW1 ([facility]) F39 [id number] Unspecified mood [affective] disorder Pro blem 05/13/2020 12:00:00 AM EST eCW1 ([facility]) F50.02 [id number] Anorexia nervosa with bulimia Problem 03/26/2020 12:00:00 AM EST eCW1 ([facility]) F50.00 [id number] Anorexia nervosa Problem 03/26/2020 12:00:00 AM EST eCW1 ([facility]) F31.9 [id number] Bipolar 1 disorder Problem 03/26/2020 12:00: 00 AM EST eCW1 ([facility]) F32.2 [id number] Severe depression Problem 03/26/2020 12:00:0 0 AM EST eCW1 ([facility]) Z86.59 [id number] History of bulimia Problem 03/04/2020 1 2:00:00 AM EST eCW1 ([facility]) N87.1 [id number] Dysplasia of cervix, high grade ALFONSO 2 Pro blem 02/13/2020 12:00:00 AM EDT eCW1 ([facility]) Surgeries/Procedures No Information Results ID Date Data Source [id number] 02/06/2021 12:05:00 PM EDT [facility] ital Specimen Comment: Source.............Cer vix;EndocervixSpecimen Comment: LMP / Prev Treat...[place] / BXSpecimen Comment: Dates / Results....LEEP CINII, CINIII, HPV+Specimen Comment: No. of containers..01 ThinPrep Vial Name Value Range Interpretation Code Description Data Gricel rce(s) Supporting Document(s) REFLEX PAP Comment . [facility] The HPV DNA reflex criteria were not met with this specimenresult therefore, no HPV testing was performed.Performed at: [address] [id number] Director: Tristan Bhardwaj MD, Phone: [phone] DIAGNOSIS: Comment . [facility] NEGATIVE FOR INTRAEPITHELIAL LESION OR M ALIGNANCY.REACTIVE CELLULAR CHANGES AND/OR REPAIR ARE PRESENT. SPECIMEN ADEQUACY: Comment . [facility] Satisfactory for evaluation. Endocervic al and/or squamous metaplasticcells (endocervical component) are present. PERFORMED BY: Comment . [facility] Jesenia Srivastava, Printing Table Hand (ASCP ) ELECTRONICALLY SIGNED BY: Comment . [facility] Tristan Bhardwaj MD, Pathologist . . . [facility] NOTE: Comment . [facility] The Pap smear is a screening test design ed to aid in thedetection of premalignant and malignant conditions of theuterine cervix. It is not a diagnostic procedure andshould not be used as the sole means of detecting cervicalcancer. Both false-positive and false-negative reports dooccur. HPV METHODOLOGY Comment . [facility] This liquid based ThinPrep(R) pap test w as screened withthe use of an image guided system. ID Date Data Source [id number] 02/06/2021 12:05:00 PM EDT [facility] Name Value Range Interpretation Code Description Data Gricel rce(s) Supporting Document(s) IGP,rfx Aptima HPV all [facility] TESTS RESULT FLAG UNI TS REF RANGE LAB Clinician Provided Cytology Information Source.............Cervix;Endocervix LMP / Prev Treat...[place] / BX Dates / Results....LEEP CINII, CINIII, HPV+ No. of containers..01 ThinPrep VialDIAGNOSIS: 01 NEGATIVE FOR INTRAEPITHELIAL LESION OR MALIGNANCY. REACTIVE CELLULAR CHANGES AND/OR REPAIR ARE PRESENT.Specimen adequacy: 01 Satisfactory for evaluation. Endocervical and/or squamous metaplastic cells (endocervical component) are present.Performed by: 01 Jesenia Srivastava, Printing Table Hand (ASCP)Electronic signed by Tristan Bhardwaj MD, Pathologist. 01Note: Note 01 The Pap smear is a screening test designed to aid in the detection of premalignant and malignant conditions of the uterine cervix. It is not a diagnostic procedure and should not be used as the sole means of detecting cervical cancer. Both false-positive and false-negative reports do occur. Test Methodology: Note 01 This liquid based ThinPrep(R) pap test was screened with the use of an image guided system.. 01 The HPV DNA reflex criteria were not met with this specimen result therefore, no HPV testing was performed. FLAG LEGEND: L-Low Normal,H-High Normal,LL-Alert Low,HH-Alert High <-Panic Low,>-Panic High,A-Abnormal,AA-Critical Abnormal Performed at:01 [facility] [place] [address] [id number] Tristan Bhardwaj MD, ID Date Data Source [id number] 02/06/2021 06:09:00 AM EDT [facility] Name Value Range Interpretation Code Description Data Gricel rce(s) Supporting Document(s) CHLAMYDIA TRACHOMATIS, RORO Negative Negative [facility] NEISSERIA GONORRHOEAE, RORO Negative Negative [facility] Performed at: - [facility] [place] [id number] Director: Ester Rock MD, Phone: [phone] ID Date Data Source [id number] 02/06/2021 06:05:00 AM EDT [facility] Name Value Range Interpretation Code Description Data Gricel rce(s) Supporting Document(s) Chlamydia/GC Amplification [facility] TESTS RESULT FLAG UNI TS REF RANGE LAB C trachomatis, RORO Negative (Negative) 01N gonorrhoeae, RORO Negative (Negative) 01 FLAG LEGEND: L-Low Normal,H-High Normal,LL-Alert Low,HH-Alert High <-Panic Low,>-Panic High,A-Abnormal,AA-Critical Abnormal Performed at:01 RN [facility] [address] [address] Ester Rock MD, ID Date Data Source [id number] 12/22/2020 12:00:00 AM EDT [facility] Name Value Range Interpretation Code Description Data Gricel rce(s) Supporting Document(s) SARS-CoV2 Rapid Antigen Negative [facility] This lab was ordered by [facility] and reported by [facility]. ID Date Data Source [id number] 06/14/2020 08:09:00 AM EST [facility] Name Value Range Interpretation Code Description Data Gricel rce(s) Supporting Document(s) VITAMIN D, 25-HYDROXY 14.3 ng/mL 30.0-100.0 [facility] Vitamin D deficiency has been defined by the [place] ofMedicine and an Endocrine Society practice guideline as alevel of serum 25-OH vitamin D less than 20 ng/mL (1,2).The Endocrine Society went on to further define vitamin Dinsufficiency as a level between 21 and 29 ng/mL (2).1. IOM ([place] of Medicine). 2010. Dietary reference intakes for calcium and D. [place]: The National Academies Press.2. Evgeny MF, Miguel A NC, Tl GERARD, et al. Evaluation, treatment, and prevention of vitamin D deficiency: an Endocrine Society clinical practice guideline. JCEM. 2010; 96(7):1911- 30.Performed at: RN - [facility] [address] [id number] Director: Ester Rock MD, Phone: [phone] ID Date Data Source [id number] 06/14/2020 08:09:00 AM [facility] Name Value Range Interpretation Code Description Data Gricel rce(s) Supporting Document(s) THYROXINE (T4) 6.7 ug/dL 4.5-12.0 [facility] T3 UPTAKE 30 % 24-39 [facility] FREE THYROXINE INDEX 2.0 1.2-4.9 [facility] pital ID Date Data Source [id number] 06/14/2020 08:06:00 AM EST [facility] Name Value Range Interpretation Code Description Data Gricel rce(s) Supporting Document(s) Thyroxine (T4) 6.7 ug/dL 4.5-12.0 [facility] T3 Uptake 30 % 24-39 [facility] Free Thyroxine Index 2.0 1.2-4.9 [facility] ID Date Data Source [id number] 06/14/2020 08:06:00 AM EST [facility] Name Value Range Interpretation Code Description Data Gricel e(s) Supporting Document(s) Vitamin D, 25-Hydroxy 14.3 ng/mL 30.0-100.0 Below low normal [facility] Vitamin D deficiency has been defined by the [place] ofVeter[facility] Health Administrationcine and an Endocrine Society practice guideline as alevel of serum 25-OH vitamin D less than 20 ng/mL (1,2).The Endocrine Society went on to further define vitamin Dinsufficiency as a level between 21 and 29 ng/mL (2).1. IOM ([place] of Medicine). 2010. Dietary reference intakes for calcium and D. [place]: The National Academies Press.2. Evgeny MF, Miguel A DE LEON, Tl GERARD, et al. Evaluation, treatment, and prevention of vitamin D deficiency: an Endocrine Society clinical practice guideline. JCEM. 2010; 96(7):1911-30. ID Date Data Source [id number] 06/13/2020 09:44:00 AM EST [facility] Name Value Range Interpretation Code Description Data Gricel e(s) Supporting Document(s) TSH 1.291 uIU/mL 0.360-3.740 [facility] ID Date Data Source [id number] 06/13/2020 09:32:00 AM EST [facility] Name Value Range Interpretation Code Description Data Gricel rce(s) Supporting Document(s) GLUCOSE 90 mg/dL 74-106 [facility] BLOOD UREA NITROGEN 13 mg/dL 7-18 [facility] ital CREATININE 0.90 mg/dL 0.6-1.0 [facility] SODIUM 140 mmol/L 136-145 [facility] POTASSIUM 4.5 mmol/L 3.5-5.1 [facility] CHLORIDE 102 mmol/L 98-107 [facility] CO2 28 mmol/L 21-32 [facility] CALCIUM 9.3 mg/dL 8.5-10.1 [facility] ANION GAP 10.0 mmol/L 5-12 [facility] GLOMERULAR FILTRATION RATE 73 mL/min [facility] GFR IS CALCULATED IN mL/min/1.73m2 RICA L FUNCTION: >90MILDLY DECREASED: 60-89MILDY TO MODERATELY DECREASED: 45-59 MODERATELY TO SEVERELY DECREASED: 30-44SEVERELY DECREASED: 15-29RENAL FAILURE: <15 AST 27 U/L 15-37 [facility] ALT 51 U/L 12-78 [facility] ALKALINE PHOSPHATASE 86 U/L 46-116 [facility] pital TOTAL BILIRUBIN 0.6 mg/dL 0.2-1.0 [facility] TOTAL PROTEIN 7.6 g/dl 6.4-8.2 [facility] ALBUMIN 4.1 gm/dL 3.4-5.0 [facility] ID Date Data Source [id number] 06/13/2020 09:22:00 AM [facility] Name Value Range Interpretation Code Description Data [facility](s) Supporting Document(s) HGBA1C 5.1 % 3.8-5.6 [facility] Diabetic > or = to 6.5%Prediabetes 5.7-6 .4%Normal <5.7 ESTIMATED AVERAGE GLUCOSE 99.7 mg/dL [facility] ID Date Data Source [id number] 06/13/2020 09:01:00 AM [facility] Name Value Range Interpretation Code Description Data [facility] Document(s) WHITE BLOOD COUNT 7.8 K/mm3 4.0-10.0 [facility] al RED BLOOD COUNT 4.75 M/mm3 4.00-5.50 [facility] HEMOGLOBIN 15.0 gm/dL 12.0-16.0 [facility] HEMATOCRIT 44.1 % 36.0-48.8 [facility] MEAN CELL VOLUME 92.8 fl 80-96 [facility] MEAN CORPUSCULAR HEMOGLOBIN 31.6 pg 27.0-31.0 H [facility] MEAN CORPUSCULAR HGB CONC 34.0 g/dl 32.0-36.0 [facility] RED CELL DISTRIBUTION WIDTH 12.9 % 10.0-14.5 [facility] PLATELET COUNT 200 K/mm3 172-450 [facility] ID Date Data Source [id number] 05/09/2020 07:31:00 AM JIME[facility] [place] [facility] DATE OF OPERATION: 05/08/2020 PREOPER ATIVE DIAGNOSIS: Elective sterilization. POSTOPERATIVE DIAGNOSIS: Same. SURGEON: Estela Hernandez M.D. BOILER REPAIR SUPERVISOR: None. ANESTHESIA: Dr. Gamez PROCEDURE: Laparoscopic bilateral Filshie clip sterilization. FINDINGS: Bimanual examination shows the uterus to be anteverted and of normal size and shape. No adnexal masses are palpated. Upon passage of the laparoscope the uterus is anteverted. The fallopian tubes and ovaries are within normal limits. The cul-de-sac shows no endometriosis. Both uterosacral ligaments are normal. The anterior cul-de-sac is likewise normal. The appendix is visualized and noted to be within normal limits. The anterior liver edge is noted to be normal. There are no abnormalities within the pelvis. PROCEDURE: With the patient properly prepped and draped and under satisfactory general anesthetic, bimanual examination is carried out as above. The anterior lip of the cervix is then grasped with a tenaculum after placement of a weightedspeculum in the vaginal vault. The uterine manipulator is then attached and Cota catheter inserted. After proper gown, scrub, and glove, our attention is turned to the abdomen. A small subumbilical incision is made through which the Veress needle was inserted into the intraperitoneal cavity. Approximately threeliters of C02 was used for insufflation. The 5.0 mm laparoscopic trocar was passed without difficulty. The laparoscope was passed and the above findings were noted. A second stab wound was made two fingerbreadths above the pubic symphysis, and through this a 7.0 mm laparoscopic trocar is passed under direct visualization. The blunt probe is passed and the above findings are confirmed. The blunt probe is then withdrawn, and the Filshie clip dulser was passed. Beginning on the right, the right fallopian tube is traced to its fimbriated endfor absolute identification, and in avascular portion, approximately 2.0 cm fromthe uterine fundus, a single Filshie clip is placed perpendicular to the tube with the tips extending across the tube and into the mesosalpinx. Good anatomic location and absolute hemostasis are noted. With this completed, our attention is turned to the left fallopian tube. The left fallopian tube is traced to its fimbriated end for absolute identification. In an avascular portion, approximately 2.0 cm from the uterine fundus, a single Filshie clip is placed perpendicular to the tube with the tips extending across the tube and into the mesosalpinx. The clip is fired in good anatomic location and absolute hemostasisare noted. 2.5 cc's of 4% Lidocaine are dripped onto the clip application sites,and the C02 was allowed to escape from the abdomen. All instruments and trocarsare removed from the abdomen. The skin incisions were closed with subcuticular 4-0 undyed Vicryl suture. The skin was further reinforced with Steri-Strips andbenzoin. All sponge and instrument counts were noted be correct at termination of the procedure. COURSE AND CONDITION: The patient tolerated the procedure extremely well and was taken to the recovery room in satisfactory condition. TUBES AND DRAINS: None. ESTIMATED BLOOD LOSS: 25 cc's. DISPOSITION OF PATIENT: To recovery room. DISPOSITION OF SPECIMEN: None. Name Value Range Interpretation Code Description Data [facility](s) Supporting Document(s) ID Date Data Source [id number] 05/08/2020 07:50:00 AM [facility] TSYSORDER URINE SPECIMEN COLLECTED AT 07 50 Name Value Range Interpretation Code Description Data [facility](s) Supporting Document(s) HCG URINE NEGATIVE NEGATIVE [facility] ID Date Data Source [id number] 05/08/2020 07:59:00 AM [facility] TSYSORDER COLLECTED BY LAB Name Value Range Interpretation Code Description Data [facility](s) Supporting Document(s) WHITE BLOOD COUNT 9.7 K/mm3 4.0-10.0 [facility] al RED BLOOD COUNT 4.72 M/mm3 4.00-5.50 [facility] HEMOGLOBIN 14.8 gm/dL 12.0-16.0 [facility] HEMATOCRIT 43.2 % 36.0-48.8 [facility] MEAN CELL VOLUME 91.5 fl 80-96 [facility] MEAN CORPUSCULAR HEMOGLOBIN 31.4 pg 27.0-31.0 H [facility] MEAN CORPUSCULAR HGB CONC 34.3 g/dl 32.0-36.0 [facility] RED CELL DISTRIBUTION WIDTH 12.7 % 10.0-14.5 [facility] PLATELET COUNT 214 K/mm3 172-450 [facility] ID Date Data Source [id number] 05/03/2020 08:00:00 AM EST [facility] Name Value Range Interpretation Code Description Data Gricel rce(s) Supporting Document(s) SARS coronavirus 2 RNA Not Detected [facility] This lab was ordered by [facility] a nd reported by [facility]. ID Date Data Source [id number] 05/05/2020 06:36:00 AM EST [facility] Name Value Range Interpretation Code Description Data Gricel rce(s) Supporting Document(s) SARS COV2 [facility] Not Detected Not Detected [facility] This nucleic acid amplification test was developed and itsperformance characteristics [facility]. Nucleic acid amplification tests include PCRand TMA. This test has not been FDA cleared or approved.This test has been authorized by FDA under an Emergency UseAuthorization (EUA). This test is only authorized forthe duration of time the declaration that circumstancesexist justifying the authorization of the emergency use ofin vitro diagnostic tests for detection of SARS-CoV-2 virusand/or diagnosis of COVID-19 infection under ptxpulm965(b)(1) of the Act, 21 U.S.C. 360bbb-3(b) (1), unless theauthorization is terminated or revoked sooner.When diagnostic testing is negative, the possibility of afalse negative result should be considered in the contextof a patient's recent exposures and the presence ofclinical signs and symptoms consistent with COVID-19. Anindividual without symptoms of COVID-19 and who is notshedding SARS-CoV-2 virus would expect to have a negative(not detected) result in this assay. ID Date Data Source [id number] 05/05/2020 06:35:00 AM EST [facility] Name Value Range Interpretation Code Description Data Gricel rce(s) Supporting Document(s) SARS-CoV-2, RORO Not Detected Not Detected [facility] This nucleic acid amplification test was developed and its performancecharacteristics determined by [facility]. Nucleic acidamplification tests include PCR and TMA. This test has not been FDAcleared or approved. This test has been authorized by FDA under anEmergency Use Authorization (EUA). This test is only authorized forthe duration of time the declaration that circumstances existjustifying the authorization of the emergency use of in vitrodiagnostic tests for detection of SARS-CoV-2 virus and/or diagnosisof COVID-19 infection under section 564(b)(1) of the Act, 21 U.S.C.360bbb-3(b) (1), unless the authorization is terminated or revokedsooner.When diagnostic testing is negative, the possibility of a falsenegative result should be considered in the context of a patient'srecent exposures and the presence of clinical signs and symptomsconsistent with COVID- 19. An individual without symptoms of COVID-19and who is not shedding SARS-CoV-2 virus would expect to have anegative (not detected) result in this assay. ID Date Data Source [id number] 05/05/2020 06:35:00 AM [facility] Name Value Range Interpretation Code Description Data Gricel rce(s) Supporting Document(s) Inpatient [facility] Received ID Date Data Source [id number] 05/06/2020 12:05:00 PM [facility] ital Specimen Comment: Source.............Cer vix;EndocervixSpecimen Comment: LMP / Prev Treat...[id number] Comment: Dates / Results....LEEPSpecimen Comment: No. of containers..01 ThinPrep Vial Name Value Range Interpretation Code Description Data Gricel rce(s) Supporting Document(s) REFLEX PAP Comment . [facility] The HPV DNA reflex criteria were not met with this specimenresult therefore, no HPV testing was performed.Performed at: [address] [id number] Director: Tristan Bhardwaj MD, Phone: [phone] DIAGNOSIS: Comment . [facility] NEGATIVE FOR INTRAEPITHELIAL LESION OR M ALIGNANCY.REACTIVE CELLULAR CHANGES AND/OR REPAIR ARE PRESENT.THIS SPECIMEN WAS RESCREENED PART OF OUR INDUSTRIAL MANAGEMENT TEACHER PROGRAM. SPECIMEN ADEQUACY: Comment . [facility] Satisfactory for evaluation. Endocervic al and/or squamous metaplasticcells (endocervical component) are present. PERFORMED BY: Comment . [facility] Rosie Becerril Printing Table Hand (ASCP) QC REVIEWED BY: Comment . [facility] Mckayla Lange Printing Table Hand (ASCP) ELECTRONICALLY SIGNED BY: Tj Johnson [facility] Tristan Bhardwaj MD, Pathologist . . . [facility] NOTE: Comment . [facility] The Pap smear is a screening test design ed to aid in thedetection of premalignant and malignant conditions of theuterine cervix. It is not a diagnostic procedure andshould not be used as the sole means of detecting cervicalcancer. Both false-positive and false-negative reports dooccur. HPV METHODOLOGY Comment . [facility] This liquid based ThinPrep(R) pap test w as screened withthe use of an image guided system. ID Date Data Source [id number] 05/06/2020 12:05:00 PM EST [facility] Name Value Range Interpretation Code Description Data Gricel rce(s) Supporting Document(s) IGP,rfx Aptima HPV all [facility] TESTS RESULT FLAG UNI TS REF RANGE LAB Clinician Provided Cytology Information Source.............Cervix;Endocervix LMP / Prev Treat...[id number] Dates / Results....LEEP No. of containers..01 ThinPrep VialDIAGNOSIS: 01 NEGATIVE FOR INTRAEPITHELIAL LESION OR MALIGNANCY. REACTIVE CELLULAR CHANGES AND/OR REPAIR ARE PRESENT. THIS SPECIMEN WAS RESCREENED PART OF OUR INDUSTRIAL MANAGEMENT TEACHER PROGRAM.Specimen adequacy: 01 Satisfactory for evaluation. Endocervical and/or squamous metaplastic cells (endocervical component) are present.Performed by: Sirena Becerril Printing Table Hand (ASCP)QC reviewed by: Sirena Lange Printing Table Hand (ASCP)Electronic signed by 01 Tristan Bhardwaj MD, Pathologist. 01Note: Note 01 The Pap smear is a screening test designed to aid in the detection of premalignant and malignant conditions of the uterine cervix. It is not a diagnostic procedure and should not be used as the sole means of detecting cervical cancer. Both false-positive and false-negative reports do occur. Test Methodology: Note 01 This liquid based ThinPrep(R) pap test was screened with the use of an image guided system.. 01 The HPV DNA reflex criteria were not met with this specimen result therefore, no HPV testing was performed. FLAG LEGEND: L-Low Normal,H-High Normal,LL-Alert Low,HH-Alert High <-Panic Low,>-Panic High,A-Abnormal,AA-Critical Abnormal Performed at:[address] [place] [id number] Tristan Bhardwaj MD, ID Date Data Source PAP REFLEX HPV 05/01/2020 12:00:00 AM EST eCW1 ([facility]) Name Value Range Interpretation Code Description Data Gricel rce(s) Supporting Document(s) Comment RECOMMENDATION: eCW1 ([facility]) Comment ELECTRONICALLY SIGNED BY: eCW1 ([facility]) Comment PATHOLOGIST PROVIDED ICD1 0: eCW1 ([facility]) Comment . REFLEX PAP eCW1 ([facility]) Comment . PERFORMED BY: eCW1 ([facility]) Comment . DIAGNOSIS: eCW1 ([facility]) . . . eCW1 ([facility]) Comment . SPECIMEN ADEQUACY: eCW1 ([facility]) Comment . NOTE: eCW1 ([facility]) ID Date Data Source [id number] 04/27/2020 11:14:00 AM EST [facility] DATE OF EXAMINATION: 04/27/2020 10:05 EST HISTORY: Trauma. Fall. TECHNIQUE: AP and lateral views of the left ankle were obtained. FINDINGS: No evidence of acute fracture or dislocation. Ankle mortise and talar dome areintact with normal alignment. No aggressive osseous lesions or erosions. Bonemineral density is unremarkable. Visualized soft tissues are normal. IMPRESSION: No evidence of acute fracture or dislocation. Electronically signed in PS360 by: Galen Ponce M.D. 04/27/2020 11:08 EST Name Value Range Interpretation Code Description Data Gricel rce(s) Supporting Document(s) ID Date Data Source [id number] 04/27/2020 11:02:00 AM EST [facility] Patient: AZAEL HUTTON Observation Report - [facility].VisitID: [id number] [place] [address] [phone], FRegistration Date/Time: 04/27/2020 09:41 Weight:68 kg (S). Height/Length:62 inches (S). BMI:27.4 (Electronically signed by Fracisco Larkin PA-C 04/27/2020 10:42) Name Value Range Interpretation Code Description Data Gricel rce(s) Supporting Document(s) ID Date Data Source US PELVIC COMPLETE TRANS ABDOMEN - [id number] 02/21/2020 05:49:47 AM EDT eCW1 ([facility]) Name Value Range Interpretation Code Description Data Gricel rce(s) Supporting Document(s) US PELVIC COMPLETE TRANS ABDOMEN - [id number] eCW1 ([facility]) ID Date Data Source [id number] 02/16/2020 09:27:00 AM EDT [facility] DATED ON EXAMINATION: 02/16/2020 8:18 ED T PELVIC COMPLETE TRANS ABDOMEN HISTORY: Left lower quadrant pain Real-time ultrasound imaging was performed utilizing B-mode/pompa scale and colorDoppler imaging where applicable. Soft tissue contents of the pelvic cavity appear normal. There is no free fluidnor any discernible adnexal mass. Endometrial stripe is 0.4 cm. Normal arterialand venous Doppler signal to both ovaries is identified. IMPRESSION: Unremarkable pelvic sonogram. Electronically signed in PS360 by: Brandon Ahuja M.D. 02/16/2020 9:22 EDT Name Value Range Interpretation Code Description Data Gricel rce(s) Supporting Document(s) Procedure Social History Code Duration Value Status Description Data Source(s ) Smoking 02/04/2021 12:00:00 AM EDT Current Smoker completed Curre nt Smoker eCW1 ([facility]) Smoking 05/23/2020 12:00:00 AM EST Current Smoker completed Curre nt Smoker eCW1 ([facility]) Smoking 05/23/2020 12:00:00 AM EST Current Smoker completed Curre nt Smoker eCW1 ([facility]) Smoking 05/01/2020 12:00:00 AM EST Current Smoker completed Curre nt Smoker eCW1 ([facility]) Smoking 04/29/2020 12:00:00 AM EST Current Smoker completed Curre nt Smoker eCW1 ([facility]) Smoking 03/27/2020 12:00:00 AM EST Current Smoker completed Curre nt Smoker eCW1 ([facility]) Vital Signs ID Date Data Source UNK Name Value Range Interpretation Code Description Data Source(s) Body height 62 [in_i] 62 [in_i] eCW1 ([facility]) Body weight 147.6 [lb_av] 147.6 [lb_av] eCW1 ([facility]) Body mass index (BMI) [Ratio] 26.99 kg/m2 26.99 kg/m2 eCW1 ([facility]) Heart rate 99 /min 99 /min eCW1 ([facility]) Respiratory rate 16 /min 16 /min eCW1 ([facility]) Oxygen saturation in Arterial blood by Pulse oximetry 100 % 100 % eCW1 ([facility]) Body height 62 [in_i] 62 [in_i] eCW1 ([facility]) Body weight 148.8 [lb_av] 148.8 [lb_av] eCW1 ([facility]) Body mass index (BMI) [Ratio] 27.21 kg/m2 27.21 kg/m2 eCW1 ([facility]) Heart rate 75 /min 75 /min eCW1 ([facility]) Respiratory rate 16 /min 16 /min eCW1 ([facility]) Oxygen saturation in Arterial blood by Pulse oximetry 98 % 98 % eCW1 ([facility]) Body height 62 [in_i] 62 [in_i] eCW1 ([facility]) Body weight 145.2 [lb_av] 145.2 [lb_av] eCW1 ([facility]) Body mass index (BMI) [Ratio] 26.55 kg/m2 26.55 kg/m2 eCW1 ([facility]) Heart rate 90 /min 90 /min eCW1 ([facility]) Respiratory rate 16 /min 16 /min eCW1 ([facility]) Oxygen saturation in Arterial blood by Pulse oximetry 98 % 98 % eCW1 ([facility]) Body height 62 [in_i] 62 [in_i] eCW1 ([facility]) Body weight 144.8 [lb_av] 144.8 [lb_av] eCW1 ([facility]) Body mass index (BMI) [Ratio] 26.48 kg/m2 26.48 kg/m2 eCW1 ([facility]) Body temperature 97.7 [degF] 97.7 [degF] eCW1 ( [facility]) Heart rate 91 /min 91 /min eCW1 ([facility]) Respiratory rate 18 /min 18 /min eCW1 ([facility]) Oxygen saturation in Arterial blood by Pulse oximetry 98 % 98 % eCW1 ([facility]) Body height 62 [in_i] 62 [in_i] eCW1 ([facility]) Body weight 138.0 [lb_av] 138.0 [lb_av] eCW1 ([facility]) Body mass index (BMI) [Ratio] 25.24 kg/m2 25.24 kg/m2 eCW1 ([facility]) Body temperature 98.0 [degF] 98.0 [degF] eCW1 ( [facility]) Heart rate 109 /min 109 /min eCW1 ([facility]) Respiratory rate 16 /min 16 /min eCW1 ([facility]) Oxygen saturation in Arterial blood by Pulse oximetry 97 % 97 % eCW1 ([facility]) Body height 62 [in_i] 62 [in_i] eCW1 ([facility]) Body weight 139.4 [lb_av] 139.4 [lb_av] eCW1 ([facility]) Body mass index (BMI) [Ratio] 25.49 kg/m2 25.49 kg/m2 eCW1 ([facility]) Heart rate 110 /min 110 /min eCW1 ([facility]) Respiratory rate 16 /min 16 /min eCW1 ([facility]) Oxygen saturation in Arterial blood by Pulse oximetry 97 % 97 % eCW1 ([facility]) Patient Treatment Plan of Care Planned Activity Planned Date Details Description Data Source (s) Metformin hydrochloride 500 MG Oral Tablet 03/14/2021 12:00:[address] eCW1 ([facility]) [place] Carbonate 300 MG Oral Tablet 11/15/2020 12:00:00 AM EDT eCW1 ([facility]) Ergocalciferol 06751 UNT Oral Capsule 06/21/2020 12:00:00 AM EST eCW1 ([facility]) lamotrigine 200 MG Oral Tablet 06/07/2020 12:00:00 AM EST eCW1 ([facility]) Acetaminophen 325 MG / Oxycodone Hydrochloride 5 MG Or al Tablet [Percocet] 05/08/2020 12:00:00 AM EST eCW1 ([facility]) Lorazepam 0.5 MG Oral Tablet [Ativan] 05/06/2020 12:00:00 AM EST eCW1 ([facility]) Trazodone Hydrochloride 50 MG Oral Tablet 04/29/2020 12:00:00 AM ES T eCW1 ([facility]) Fluoxetine 10 MG Oral Capsule [Prozac] 03/04/2020 12:00:00 AM EST eCW1 ([facility]) Fluoxetine 10 MG Oral Capsule [Prozac] 03/04/2020 12:00:00 AM EST eCW1 ([facility]) Fluoxetine 10 MG Oral Capsule [Prozac] 03/04/2020 12:00:00 AM EST eCW1 ([facility]) Desogestrel-Ethinyl Estradiol 0.15-30 MG-MCG 02/29/2020 12:00:00 AM EST eCW1 ([facility])
--- OUTSIDE RECORDS SUMMARY | 2021-03-31 23:09 | CCD ---
Author Author [facility] Organization [facility] Address Unknown Phone Unavailable Care Team Providers Care Project Management Specialist Name Role Phone Larkin, Fracisco PA Unavailable [...] ESTELA DO Unavailable Unavailable IVEY SR, JESENIA WANG MD [...] JESENIA WANG MD Unavailable Unavailable IVEY SR, JESEINA WANG MD Unavailable Unavailable IVEY SR, JESENIA [...] IVEY SR, JESENIA WANG MD Unavailable Unavailable VIEY SR, JESENIA WANG MD Unavailable Unavailable IVEY [...] M Brittani PA-C Unavailable Unavailable DESJARLAIS, BERTIN MANGA ARTIST Unavailable Unavailable DESJARLAIS, BERTIN MANGA ARTIST Unavailable Unavailable DESJARLAIS, BERTIN MANGA ARTIST Unavailable Unavailable DESJARLAIS, BERTIN MANGA ARTIST Unavailable Unavailable DESJARLAIS, BERTIN MANGA ARTIST Unavailable Unavailable DESJARLAIS, BERTIN MANGA ARTIST Unavailable Unavailable DESJARLAIS, BERTIN MANGA ARTIST Unavailable Unavailable DESJARLAIS, BERTIN MANGA ARTIST Unavailable Unavailable DESJARLAIS, BERTIN MANGA ARTIST Unavailable Unavailable DESJARLAIS, BERTIN MANGA ARTIST Unavailable Unavailable YULIET HANSEN Unavailable Unavailable Byrnes, Lia Unavailable Byrnes, Lia Unavailable Yuliet Hansen Unavailable Yuliet Hansen Unavailable Saman, Orion Del Angele EARLY CHILDHOOD SERVICES COORDINATOR-C Unavailable Unavailabl e Saman, Reginah W Katerina EARLY CHILDHOOD SERVICES COORDINATOR-C Unavailable Unavailabl e Saman, Reginah W Katerina EARLY CHILDHOOD SERVICES COORDINATOR-C Unavailable Unavailabl e Saman, Reginah W Katerina EARLY CHILDHOOD SERVICES COORDINATOR-C Unavailable Unavailabl e Saman, Reginah W Katerina EARLY CHILDHOOD SERVICES COORDINATOR-C Unavailable Unavailabl e Saman, Regkavitha W Katerina EARLY CHILDHOOD SERVICES COORDINATOR-C Unavailable Unavailabl e Saman, Regkavitha W Katerina EARLY CHILDHOOD SERVICES COORDINATOR-C Unavailable Unavailabl e Saman, Orion W Katerina EARLY CHILDHOOD SERVICES COORDINATOR-C Unavailable Unavailabl e Saman, Orion W Katerina EARLY CHILDHOOD SERVICES COORDINATOR-C Unavailable Unavailabl e Saman, Regkavitha W Katerina EARLY CHILDHOOD SERVICES COORDINATOR-C Unavailable Unavailabl e Saman, Orion W Katerina EARLY CHILDHOOD SERVICES COORDINATOR-C Unavailable Unavailabl e Saman, Reginacaren W Katerina EARLY CHILDHOOD SERVICES COORDINATOR-C Unavailable Unavailabl e Saman, Reggladys W Katerina EARLY CHILDHOOD SERVICES COORDINATOR-C Unavailable Unavailabl e Saman, Orion W Katerian EARLY CHILDHOOD SERVICES COORDINATOR-C Unavailable Unavailabl e Saman, Orion W Katerina EARLY CHILDHOOD SERVICES COORDINATOR-C Unavailable Unavailabl e Saman, Gertrude W Katerina EARLY CHILDHOOD SERVICES COORDINATOR-C Unavailable Unavailabl e Saman, Gertrude W Katerina EARLY CHILDHOOD SERVICES COORDINATOR-C Unavailable Unavailabl e Saman, Gertrude W Katerina EARLY CHILDHOOD SERVICES COORDINATOR-C Unavailable Unavailabl e Saman, Gertrude W Katerina EARLY CHILDHOOD SERVICES COORDINATOR-C Unavailable Unavailabl e Saman, Gertrude W Katerina EARLY CHILDHOOD SERVICES COORDINATOR-C Unavailable Unavailabl e Saman, Gertrude W Katerina EARLY CHILDHOOD SERVICES COORDINATOR-C Unavailable Unavailabl e Saman, Gertrude W Katerina EARLY CHILDHOOD SERVICES COORDINATOR-C Unavailable Unavailabl e Saman, Reggladys W Katerina EARLY CHILDHOOD SERVICES COORDINATOR-C Unavailable Unavailabl e Saman, Reggladys W Katerina EARLY CHILDHOOD SERVICES COORDINATOR-C Unavailable Unavailabl e Saman, Reggladys W Ktaerina EARLY CHILDHOOD SERVICES COORDINATOR-C Unavailable Unavailabl e Saman, Regina W Katerina EARLY CHILDHOOD SERVICES COORDINATOR-C Unavailable Unavailabl e Saman, Reggladys W Katerina EARLY CHILDHOOD SERVICES COORDINATOR-C Unavailable Unavailabl e Smaan, Reggladys W Katerina EARLY CHILDHOOD SERVICES COORDINATOR-C Unavailable Unavailabl e Saman, Reggladys W Katerina EARLY CHILDHOOD SERVICES COORDINATOR-C Unavailable Unavailabl e Saman, Reggladys W Katerina EARLY CHILDHOOD SERVICES COORDINATOR-C Unavailable Unavailabl e Saman, Regkavitha W Katerina EARLY CHILDHOOD SERVICES COORDINATOR-C Unavailable Unavailabl e Saman, Orion W Katerina EARLY CHILDHOOD SERVICES COORDINATOR-C Unavailable Unavailabl e ESTEBAN, PRYJMA ANTHONY Unavailable [...] Mavis Argueta Unavailable Mavis Argueta Unavailable Cristy Lucia EARLY CHILDHOOD SERVICES COORDINATOR Unavailable Unavailable Pioche, Cristy Reg EARLY CHILDHOOD SERVICES COORDINATOR Unavailable Unavailable Rea, Cristy Reg EARLY CHILDHOOD SERVICES COORDINATOR Unavailable Unavailable Pioche, Cristy Reg EARLY CHILDHOOD SERVICES COORDINATOR Unavailable Unavailable Pioche, Cristy Reg EARLY CHILDHOOD SERVICES COORDINATOR Unavailable Unavailable Rea, Cristy Reg EARLY CHILDHOOD SERVICES COORDINATOR Unavailable Unavailable Pioche, Cristy Reg EARLY CHILDHOOD SERVICES COORDINATOR Unavailable Unavailable Pioche, Cristy Reg EARLY CHILDHOOD SERVICES COORDINATOR Unavailable Unavailable Rea, Cristy Reg EARLY CHILDHOOD SERVICES COORDINATOR Unavailable Unavailable Pioche, Cristy Reg EARLY CHILDHOOD SERVICES COORDINATOR Unavailable Unavailable Pioche, Cristy Reg EARLY CHILDHOOD SERVICES COORDINATOR Unavailable Unavailable Rea, Cristy Reg EARLY CHILDHOOD SERVICES COORDINATOR Unavailable Unavailable Rea, Cristy Reg EARLY CHILDHOOD SERVICES COORDINATOR Unavailable Unavailable Pioche, Cristy Reg EARLY CHILDHOOD SERVICES COORDINATOR Unavailable Unavailable Re-disclosure Warning The records that [...] is protected by Article 27-F of the [facility] Public Health law. If you continue you may have access to information: Regarding HIV / AIDS; Provided by facilities licensed or operated by the [facility] Office of Mental Health; or Provided by the [facility] Office for People With Developmental Disabilities. If such information is present, then the following [facility] mandated warning applies: This information has been [...] law may result in a fine or fci sentence or both. A general authorization for the release of medical or other information is NOT sufficient authorization for further disc losure. Allergies and Adverse Reactions Type Description Substance Reaction Status Data Source(s ) Drug allergy hydromorphone hydromorphone SEVERE PAIN [facility] Drug allergy acetaminophen acetaminophen SEVERE N/V U [facility] Drug allergy hydrocodone hydrocodone SEVERE N/V [facility] Drug allergy Drug allergy TRAZADONE "PANIC ATTACKS" U [facility] Drug allergy fentanyl fentanyl SHALLOW BREATHING [facility] Encounters Encounter Providers Location Date Indications Data Source(s ) Outpatient Attender: Mavis Argueta 03/25/2021 09:05:00 AM [facility] Outpatient [facility] 03/17/2021 12:00:00 AM [place] [address] ([facility]) Outpatient Attender: BERTIN CLARK NP 03/14/2021 08: 50:00 AM [facility] Outpatient Attender: Mavis Argueta 03/11/2021 09:02:00 AM [facility] Outpatient Attender: Mavis Argueta 02/25/2021 09:00:00 AM [facility] Outpatient Attender: BERTIN CLARK NP 02/13/2021 08: 26:00 AM [facility] Outpatient Attender: Mavis Argueta 02/11/2021 09:05:00 AM [facility] Outpatient Attender: Mavis Argueta 02/04/2021 01:02:00 PM [facility] Outpatient Attender: Reg Lucia FNPReferrer: Andressa Weldon [facility] 11:28:00 AM [facility] 02/04/2021 11:28:00 AM [facility] Outpatient Attender: BERTIN CLARK NP 01/08/2021 10: 00:00 AM [facility] Outpatient Attender: BERTIN CLARK NP 12/17/2020 08: 26:00 AM [facility] Outpatient Attender: BERTIN CLARK NP 11/15/2020 10: 40:00 AM [facility] Outpatient Attender: Lia Byrnes 10/29/2020 09:04:00 AM [facility] Outpatient Attender: Lia Byrnes 10/21/2020 11:00:00 AM [facility] Outpatient Attender: BERTIN CLARK NP 10/10/2020 01: 20:00 PM [facility] Outpatient Attender: Lia Byrnes 10/09/2020 03:00:00 PM [facility] Outpatient Attender: Delia Acuna 09/16/2020 08:04:00 AM [facility] Outpatient Attender: Delia Acuna 09/09/2020 08:03:00 AM [facility] Outpatient Attender: Delia Acuna 09/05/2020 11:00:00 AM [facility] Outpatient Attender: BERTIN CLARK NP 09/05/2020 09: 26:00 AM [facility] Outpatient Attender: Delia Shrestha: DELIA ACUNA 08/19/2020 01:00:00 PM [facility] Outpatient Attender: Delia Shrestha: DELIA ACUNA 08/12/2020 08:02:00 AM [facility] Outpatient Attender: BERTIN CLARK NP 07/31/2020 09: 06:00 AM [facility] Outpatient Attender: Delia Shrestha: DELIA ACUNA 07/30/2020 02:00:00 PM [facility] Outpatient Attender: Delia Shrestha: DELIA ACUNA 07/15/2020 10:00:00 AM [facility] Outpatient Attender: BERTIN CLARK NP 07/10/2020 10: 40:00 AM [facility] Outpatient Attender: Delia Shrestha: DELIA ACUNA 07/08/2020 10:00:00 AM [facility] Outpatient Attender: BERTIN CLARK NP 06/21/2020 09: 36:00 AM [facility] Outpatient Attender: Delia Shrestha: DELIA ACUNA 06/17/2020 09:00:00 AM [facility] Outpatient Attender: BERTIN CLARK NPReferrer : Brittani Weldon PA-C EMERGENCY ROOM-LAB 06/13/2020 08:45:00 AM [facility] - 06/13/2020 08:45:00 AM [facility] Outpatient Attender: Delia Shrestha: DELIA ACUNA 06/10/2020 09:25:00 AM [facility] Outpatient Attender: BERTIN CLARK NP 06/07/2020 08: 34:00 AM [facility] Outpatient Attender: Delia Shrestha: DELIA ACUNA 06/03/2020 09:02:00 AM [facility] Outpatient Attender: ESTELA HERNANDEZ DO 05/23/2020 08:51:00 A M [facility] Outpatient [facility] 05/23/2020 12:00:00 AM [place] [address] ([facility]) Outpatient Attender: Delia Shrestha: DELIA ACUNA 05/20/2020 09:03:00 AM [facility] Outpatient Attender: Delia Shrestha: DELIA ACUNA 05/13/2020 09:01:00 AM [facility] Outpatient Attender: ESTELA Dunham: Baldev Weldon PA-C EMERGENCY ROOM-[facility] 05/08/2020 07:17:00 AM [facility] - 05/08/2020 11:48:00 AM [facility] Patient discharged. Outpatient [facility] 05/08/2020 12:00:00 AM [place] [address] ([facility]) Outpatient Attender: EMILIA RIVAS MDAttender: EMILIA RIVAS 05/06/2020 03:30:00 PM [facility] Outpatient Attender: Delia Shrestha: DELIA ACUNA 05/06/2020 09:04:00 AM [facility] Outpatient Attender: Yuliet HansenAttender: YULIET HANSEN 05/03/2020 07:15:00 PM [facility] Outpatient Attender: Katerina TOUREP-CReferrer: Me jackie Weldon PA-C EMERGENCY ROOM-LAB REF 05/03/2020 08:26:00 AM [facility] - 05/03/2020 08:26:00 AM [facility] Outpatient Attender: ESTELA Dunham: Baldev Weldon PA-C [facility] 05/01/2020 09:29:00 AM [facility] - 05/01/2020 09:29:00 AM [facility] Outpatient [facility] 05/01/2020 12:00:00 AM [facility] eCW ([facility]) Outpatient Attender: EMILIA RIVAS MDAttender: EMILIA RIVAS 04/29/2020 10:00:00 AM [facility] Emergency Attender: Fracisco Carreon: Brittani gallo PA-C 04/27/2020 10:07:00 AM EST - 04/27/2020 10:55:00 AM [facility] pital Patient discharged. Outpatient Attender: Delia Shrestha: DELIA ACUNA 04/25/2020 09:03:00 AM [facility] Outpatient Attender: Delia Shrestha: DELIA ACUNA 04/18/2020 08:13:00 AM [facility] Outpatient Attender: Delia Shrestha: DELIA ACUNA 04/12/2020 11:00:00 AM [facility] Outpatient Attender: Delia Shrestha: DELIA ACUNA 04/03/2020 01:00:00 PM [facility] Outpatient Attender: ESTELA HERNANDEZ DO 03/27/2020 09:22:00 A M [facility] Outpatient [facility] 03/27/2020 12:00:00 AM EST eCW1 ([facility]) Outpatient Attender: Yuliet HansenAttender: YULIET HANSEN 03/26/2020 09:04:00 AM [facility] Outpatient Attender: Brittani Weldon PA-C 03/25/2020 10:48 :00 AM [facility] Outpatient [facility] 03/25/2020 12:00:00 AM EST eCW1 ([facility]) Outpatient Attender: Brittani Weldon PA-C 03/04/2020 11:21 :00 AM [facility] Outpatient [facility] 03/04/2020 12:00:00 AM EST eCW1 ([facility]) Outpatient [facility] 03/04/2020 12:00:00 AM EST eCW1 ([facility]) Outpatient [facility] 02/29/2020 12:00:00 AM EST eCW1 ([facility]) Outpatient Attender: ESTELA Dunham: FELIPE IVEY SR 02/16/2020 08:30:00 AM [facility] Outpatient Attender: ESTELA HERNANDEZ DO 02/13/2020 10:27:00 A [facility] Outpatient [facility] 02/13/2020 12:00:00 AM EDT eCW1 ([facility]) Outpatient Attender: ESTELA Brookser: FELIPE IVEY SR EMERGENCY ROOM-SDC 01/23/2020 07:57:00 AM EDT - 01/23/2020 11:38:00 AM [facility] Patient discharged. Outpatient Attender: Katerina Davison EARLY CHILDHOOD SERVICES COORDINATOR-CReferrer: NEETA IVEY SR EMERGENCY ROOM-LAB REF 01/19/2020 09:05:00 AM EDT - 01/19/2020 09:05:00 AM [facility] Outpatient Attender: ESTELA HERNANDEZ DO 01/11/2020 11:26:00 A [facility] Outpatient Attender: Brittani Weldon PA-C 01/10/2020 08:22 :00 AM [facility] Outpatient Attender: ESTELA HERNANDEZ DO 12/07/2019 10:51:00 A [facility] Outpatient Attender: ANTHONY ORELLANA MD 11/16/2019 01:47:00 PM [facility] Outpatient Attender: ESTELA Brookser: FELIPE IVEY SR EMERGENCY ROOM-CLNSPECGYN 11/02/2019 08:22:00 AM EDT - 11/02/2019 08:22:00 AM [facility] Outpatient Attender: FELIPE IVEY SR 10/23/2019 08:04:00 AM [facility] Outpatient Attender: ESTELA Dunham: FELIPE IVEY SR 06/27/2018 08:00:00 AM [facility] Immunizations Vaccine Date Status Description Data Source(s) COVID-19 VACC, MRNA(PFIZER)/PF 10/15/2020 12:00:00 AM EDT completed [facility] COVID-19 VACC, MRNA(PFIZER)/PF 09/20/2020 12:00:00 AM EDT completed [facility] COVID-19 VACCINE Pfizer 09/20/2020 12:00:00 AM EDT completed [facility] Vaccine Series Complete: NOThis Data was Submitted to [facility] Via [employer]. New in 2011. IIV4 03/04/2020 11:52:00 AM EST completed eCW1 ([facility]) New in 2011. IIV4 03/04/2020 11:52:00 AM EST completed eCW1 ([facility]) New in 2011. IIV4 03/04/2020 11:52:00 AM EST completed eCW1 ([facility]) New in 2011. IIV4 03/04/2020 11:52:00 AM EST completed eCW1 ([facility]) New in 2011. IIV4 03/04/2020 11:52:00 AM EST completed eCW1 ([facility]) New in 2011. IIV4 03/04/2020 11:52:00 AM EST completed eCW1 ([facility]) New in 2011. IIV4 03/04/2020 11:52:00 AM EST completed eCW1 ([facility]) New in 2011. IIV4 03/04/2020 11:52:00 AM EST completed eCW1 ([facility]) New in 2011. II03/04/2020 11:52:00 AM EST completed eCW1 ([facility]) Medications Medication Brand Name Start Date Product Form Dose Route Admi nistrative Instructions Pharmacy Instructions Status Indications Reaction Description Data Source(s) Metformin hydrochloride 500 MG Oral Tablet metFORMIN H Cl 500 MG metFORMIN HCl 500 MG 03/14/2021 12:00:00 AM EST 1.0 {tablet_with_a_meal} active metFORMIN HCl 500 MG eCW1 ([facility]) [place] Carbonate 300 MG Oral Tablet [place] Carbonate 300 M G 11/15/2020 12:00:00 AM EDT 1.0 {tablet_at_bedtime} active [place] Carbonate 300 MG eCW1 ([facility]) lamotrigine 100 MG Oral Tablet [Lamictal] LaMICtal 100 MG La MICtal 100 MG 11/15/2020 12:00:00 AM EDT 1.0 {tablet} active LaMICtal 100 MG eCW1 ([facility]) 200 mg 10/11/2020 12:00:00 AM EDT tablet [...] ONCE WEEKLY SOLD: 07/23/2020 [facility] Ergocalciferol 84609 UNT Oral Capsule Ergocalciferol 1 .25 MG (62322 UT) Ergocalciferol 1.25 MG (69914 UT) 06/21/2020 12:00:00 AM EST 1.0 {c apsule} active Ergocalciferol 1.25 MG (5 0000 UT) eCW1 ([facility]) 25 mg 06/21/2020 12:00:00 [...] {tablet} active La motrigine 25 MG eCW1 ([facility]) 0.5 mg 06/07/2020 12:00:00 AM EST tablet [...] {tablet} active la moTRIgine 200 MG eCW1 ([facility]) Prazosin 1 MG Oral Capsule Prazosin HCl 1 MG Prazosin HCl 1 MG 06/07/2020 12:00:00 AM EST 1.0 {capsule_at_bedtime} active Prazosin HCl 1 MG eCW1 ([facility]) 20 mg 05/30/2020 12:00:00 AM EST capsule 60 TAKE 2 CAPSULES BY MOUTH ONCE DAILY TAKE 2 CAPSULES BY MOUTH ONCE DAILY SOLD: 06/04/2020 [facility] Acetaminophen 325 MG / Oxycodone Hydroch loride 5 MG Oral Tablet [Percocet] Percocet 5-325 MG Percocet 5-325 MG 05/08/2020 12:00:00 AM EST 1 .0 {tablet_as_needed} active Percocet 5-32 5 MG eCW1 ([facility]) 5-325 mg 05/08/2020 12:00:00 AM EST tablet 12 TAKE ONE TABLET BY MOUTH EVERY 6 HOURS NEEDED MAXIMUM DAILY DOSE = 4 TABLETS TAKE ONE TABLET BY MOUTH EVERY 6 HOURS NEEDED MAXIMUM DAILY DOSE = 4 TABLETS SOLD: 05/08/2020 [facility] Lorazepam 0.5 MG Oral Tablet [Ativan] Ativan 0.5 MG Ativan 0 .5 MG 05/06/2020 12:00:00 AM EST 1.0 {tablet_at_bedtime_as_needed} active Ativan 0.5 MG eCW1 ([facility]) 0.5 mg 05/06/2020 12:00:00 AM EST tablet 30 TAKE ONE TABLET BY MOUTH EVERY DAY AT BEDTIME NEEDED MAXIMUM DAILY DOSE = 1 TAKE ONE TABLET BY MOUTH EVERY DAY AT BEDTIME NEEDED MAXIMUM DAILY DOSE = 1 SOLD: 05/06/2020 [facility] Lorazepam 0.5 MG Oral Tablet [Ativan] Ativan 0.5 MG Ativan 0 .5 MG 05/06/2020 12:00:00 AM EST 1.0 {tablet_at_bedtime_as_needed} active Ativan 0.5 MG eCW1 ([facility]) Lorazepam 0.5 MG Oral Tablet [Ativan] Ativan 0.5 MG Ativan 0 .5 MG 05/06/2020 12:00:00 AM EST 1.0 {tablet_at_bedtime_as_needed} active Ativan 0.5 MG eCW1 ([facility]) Lorazepam 0.5 MG Oral Tablet [Ativan] Ativan 0.5 MG Ativan 0 .5 MG 05/06/2020 12:00:00 AM EST 1.0 {tablet_at_bedtime_as_needed} active Ativan 0.5 MG eCW1 ([facility]) 20 mg 05/05/2020 12:00:00 AM EST capsule 60 TAKE 2 CAPSULES BY MOUTH ONCE AT BEDTIME TAKE 2 CAPSULES BY MOUTH ONCE AT BEDTIME SOLD: 05/06/2020 [facility] Trazodone Hydrochloride 50 MG Oral Tablet Trazodone HC l 50 MG Trazodone HCl 50 MG 04/29/2020 12:00:00 AM EST active Trazodone HCl 50 MG eCW1 ([facility]) 50 mg 04/29/2020 12:00:00 AM EST tablet 30 TAKE 0.5 TO 1 TABLET BY MOUTH ONCE AT BEDTIME TAKE 0.5 TO 1 TABLET BY MOUTH ONCE AT BEDTIME SOLD: 05/01/19 21 [facility] Trazodone Hydrochloride 50 MG Oral Tablet Trazodone HC l 50 MG Trazodone HCl 50 MG 04/29/2020 12:00:00 AM EST active Trazodone HCl 50 MG eCW1 ([facility]) Trazodone Hydrochloride 50 MG Oral Tablet Trazodone HC l 50 MG Trazodone HCl 50 MG 04/29/2020 12:00:00 AM EST active Trazodone HCl 50 MG eCW1 ([facility]) 20 mg 03/11/2020 12:00:00 AM EST capsule [...] BY MOUTH EVERY DAY SOLD: 04/06/2020 [facility] Fluoxetine 10 MG Oral Capsule [Prozac] Prozac 10 MG Prozac 1 0 MG 03/04/2020 12:00:00 AM EST active Prozac 1 0 MG eCW1 ([facility]) Fluoxetine 10 MG Oral Capsule [Prozac] Prozac 10 MG Prozac 1 0 MG 03/04/2020 12:00:00 AM EST active Prozac 1 0 MG eCW1 ([facility]) Fluoxetine 10 MG Oral Capsule [Prozac] Prozac 10 MG Prozac 1 0 MG 03/04/2020 12:00:00 AM EST active Prozac 1 0 MG eCW1 ([facility]) Fluoxetine 10 MG Oral Capsule [Prozac] Prozac 10 MG Prozac 1 0 MG 03/04/2020 12:00:00 AM EST active Prozac 1 0 MG eCW1 ([facility]) Fluoxetine 10 MG Oral Capsule [Prozac] Prozac 10 MG Prozac 1 0 MG 03/04/2020 12:00:00 AM EST active Prozac 1 0 MG eCW1 ([facility]) 10 mg 03/04/2020 12:00:00 AM EST capsule 30 TAKE 1 CAPSULE BY MOUTH ONCE A DAY TAKE 1 CAPSULE BY MOUTH ONCE A DAY SOLD: 03/06/2020 [facility] Fluoxetine 10 MG Oral Capsule [Prozac] Prozac 10 MG Prozac 1 0 MG 03/04/2020 12:00:00 AM EST active Prozac 1 0 MG eCW1 ([facility]) Fluoxetine 10 MG Oral Capsule [Prozac] Prozac 10 MG Prozac 1 0 MG 03/04/2020 12:00:00 AM EST active Prozac 1 0 MG eCW1 ([facility]) 10 mg 03/04/2020 12:00:00 AM EST capsule 30 TAKE 1 CAPSULE BY MOUTH ONCE A DAY TAKE 1 CAPSULE BY MOUTH ONCE A DAY SOLD: 04/06/2020 [facility] Fluoxetine 10 MG Oral Capsule [Prozac] Prozac 10 MG Prozac 1 0 MG 03/04/2020 12:00:00 AM EST active Prozac 1 0 MG eCW1 ([facility]) Desogestrel-Ethinyl Estradiol 0.15-30 MG-MCG Desogestr el-Ethinyl Estradiol 0.15- 30 MG-MCG 02/29/2020 12:00:00 AM EST 1.0 {tablet} ac tive Desogestrel-Ethinyl Estradiol 0.15-30 MG-MCG eCW1 ([facility]) Desogestrel-Ethinyl Estradiol 0.15-30 MG-MCG Desogestr el-Ethinyl Estradiol 0.15- 30 MG-MCG 02/29/2020 12:00:00 AM EST 1.0 {tablet} ac tive Desogestrel-Ethinyl Estradiol 0.15-30 MG-MCG eCW1 ([facility]) Desogestrel-Ethinyl Estradiol 0.15-30 MG-MCG Desogestr el-Ethinyl Estradiol 0.15- 30 MG-MCG 02/29/2020 12:00:00 AM EST 1.0 {tablet} ac tive Desogestrel-Ethinyl Estradiol 0.15-30 MG-MCG eCW1 ([facility]) Desogestrel-Ethinyl Estradiol 0.15-30 MG-MCG Desogestr el-Ethinyl Estradiol 0.15- 30 MG-MCG 02/29/2020 12:00:00 AM EST 1.0 {tablet} ac tive Desogestrel-Ethinyl Estradiol 0.15-30 MG-MCG eCW1 ([facility]) Desogestrel-Ethinyl Estradiol 0.15-30 MG-MCG UNK 0 12:00:00 AM EST 1.0 {tablet} active Desogestrel-Ethinyl Estradiol 0.15-30 MG-MCG eCW1 ([facility]) Desogestrel-Ethinyl Estradiol 0.15-30 MG-MCG Desogestr el-Ethinyl Estradiol 0.15- 30 MG-MCG 02/29/2020 12:00:00 AM EST 1.0 {tablet} ac tive Desogestrel-Ethinyl Estradiol 0.15-30 MG-MCG eCW1 ([facility]) Desogestrel-Ethinyl Estradiol 0.15-30 MG-MCG Desogestr el-Ethinyl Estradiol 0.15- 30 MG-MCG 02/29/2020 12:00:00 AM EST 1.0 {tablet} ac tive Desogestrel-Ethinyl Estradiol 0.15-30 MG-MCG eCW1 ([facility]) 20 mg 01/16/2020 12:00:00 AM EDT tablet [...] type / Coverage type Policy ID Covered constitution party ID Covered constitution party's relationship to [place] Policy [place] Plan Information [facility] MEDICAID [id number] S [id number] [facility] MEDICAID [id number] S [id number] [facility] MEDICAID [id number] S [id number] [facility] [id number] S [id number] [facility](MCAID) O [id number] S [id number] [id number] [facility] [id number] [facility] MEDICAID [id number] S [id number] [facility] [id number] ANSI-Medicaid [id number] ANSI-Medicaid [id number] ANSI-Medicaid [id number] ANSI-Medicaid [id number] ANSI-Medicaid [id number] ANSI-Medicaid [id number] ANSI-Medicaid [id number] [facility] [id number] S [id number] ANSI-Medicaid [id number] ANSI-Medicaid [id number] [facility] [id number] SP [id number] ANSI-Medicaid [id number] [facility] [id number] S [id number] Problems, Conditions, and Diagnoses Code Display Name Description Problem Type Effective Dates Data Source(s) R87.810 Cervical high risk human papillomavirus (HPV) DNA test positive CERVICAL HIGH RISK HPV DNA TEST POSITIVE Diagnosis 02/04/2021 11:28:00 AM [facility] N64.4 Mastodynia MASTODYNIA Diagnosis 02/04/2021 11:28:00 AM [facility] Z11.3 Encounter for screening for infections with a predominantly sexual mode of transmission ENCNTR SCREEN FOR INFECTIONS W SEXL MODE Diagnosis 02/04/2021 11:28:00 AM [facility] N87.1 Moderate cervical dysplasia MODERATE CERVICAL DYSPLASI A Diagnosis 02/04/2021 11:28:00 AM [facility] Z01.411 Encounter for gynecological examination (general) (routine) with abnormal findings ENCNTR FOR EMERGENCY MEDICAL TECHNICIAN BASIC EXAM (GENERAL) (ROUTINE) W ABNORMAL FIN DINGS Diagnosis 02/04/2021 11:28:00 AM [facility] R25.1 Tremor, unspecified TREMOR, UNSPECIFIED Diagnosis 0 01/08/2021 10:00:00 AM [facility] E55.9 Vitamin D deficiency, unspecified VITAMIN D DEFI CIENCY, UNSPECIFIED Diagnosis 01/08/2021 10:00:00 AM [facility] F50.02 Anorexia nervosa, binge eating/purging t ype ANOREXIA NERVOSA, BINGE EATING/PURGING TYPE Diagnosis 01/08/2021 10:00:00 AM [facility] F31.9 Bipolar disorder, unspecified BIPOLAR DISORDER, UNSPEC IFIED Diagnosis 01/08/2021 10:00:00 AM [facility] F60.3 Borderline personality disorder BORDERLINE PERSONALITY DISORDER Diagnosis 01/08/2021 10:00:00 AM [facility] F41.0 Panic disorder [episodic paroxysmal anxi ety] PANIC DISORDER [EPISODIC PAROXYSMAL ANXIETY] Diagnosis 12/17/2020 08:26:00 AM [facility] F50.9 Eating disorder, unspecified EATING DISORDER, UNSPECIF IED Diagnosis 10/21/2020 11:00:00 AM [facility] F31.31 Bipolar disorder, current episode depres sed, mild BIPOLAR DISORDER, CURRENT EPISODE DEPRESSED, MILD Diagnosis 10/21/2020 11:00:00 AM [facility] F32.2 Major depressive disorder, s brody episode, severe without psychotic features MAJOR DEPRESSV DISORD, SINGLE EPSD, SEV W/O PSYCH FEATURES D iagnosis 09/16/2020 08:04:00 AM [facility] F43.23 Adjustment disorder with mixed anxiety a nd depressed mood ADJUSTMENT DISORDER WITH MIXED ANXIETY AND DEPRESS Diagnosis 09/05/2020 09:26:00 AM [facility] F31.4 Bipolar disorder, current ep isode depressed, severe, without psychotic features BIPOLAR DISORD, CRNT EPSD DEPRESS, SEV, W/O PSYCH FEATURES D iagnosis 07/15/2020 10:00:00 AM [facility] F43.22 Adjustment disorder with anxiety ADJUSTMENT DISO RDER WITH ANXIETY Diagnosis 07/08/2020 10:00:00 AM [facility] 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 G47.00 Insomnia, unspecified INSOMNIA, UNSPECIFIED Diagnosis 04/29/2020 10:00:00 AM [facility] F39 Unspecified mood [affective] disorder UNSPECIFIE D MOOD [AFFECTIVE] DISORDER Diagnosis 04/29/2020 10:00:00 AM [facility] Y93.01 Activity, walking, marching and hiking A CTIVITY, WALKING, MARCHING AND HIKING Diagnosis 04/27/2020 10:07:00 AM [facility] Y92.[address] and [address]w ay as the place of occurrence of the external cause [address] Diagnosis 01/02/2 021 10:07:00 AM [facility] X50.1XXA OVEREXERTION FROM PROLONGED STATIC OR AW KWARD POST OVEREXERTION FROM PROLONGED STATIC OR AWKWARD POST Diagnosis 04/27/2020 10:07:00 AM [facility] S93.492A Sprain of other ligament of left ankle, initial encounter SPRAIN OF OTHER LIGAMENT OF LEFT ANKLE, INITIAL EN Diagnosis 04/27/2020 10:07:00 AM [facility] S99.912A Unspecified injury of left ankle, initia l encounter UNSPECIFIED INJURY OF LEFT ANKLE, INITIAL ENCOUNTER Diagnosis 04/27/2020 10:07:00 AM [facility] Z30.09 Encounter for other general counseling a nd advice on contraception ENCOUNTER FOR OTH GENERAL CNSL AND ADVICE ON CONTRACEPTION Diagnosis 03/27/2020 09:22:00 AM [facility] Z86.59 Personal history of other mental and beh avioral disorders PERSONAL HISTORY OF OTHER MENTAL AND BEHAVIORAL DI Diagnosis 03/25/2020 10:48:0 0 AM [facility] Z71.89 Other specified counseling OTHER SPECIFIED COUNSELING Diagnosis 03/04/2020 11:21:00 AM [facility] Z23 Encounter for immunization ENCOUNTER FOR IMMUNIZATION Diagnosis 03/04/2020 11:21:00 AM [facility] R10.32 Left lower quadrant pain LEFT LOWER QUADRANT PAIN Diag nosis 02/16/2020 08:30:00 AM EDT [facility] R87.810 Cervical high risk HPV (human papillomav irus) test positive Cervical high risk HPV (human papillomavirus) test positive Problem 03/2021 12:00:00 AM EDT eCW1 ([facility]) F41.0 [id number] Panic Problem 07/31/2020 12:00:00 AM ED T eCW1 ([facility]) F60.3 [id number] Borderline personality disorder Problem 06/07/2020 12:00:00 AM EST eCW1 ([facility]) F39 [id number] Unspecified mood [affective] disorder Pro blem 05/13/2020 12:00:00 AM EST eCW1 ([facility]) F50.02 [id number] Anorexia nervosa with bulimia Problem 03/26/2020 12:00:00 AM EST eCW1 ([facility]) F50.00 [id number] Anorexia nervosa Problem 03/26/2020 12:00:00 AM EST eCW1 ([facility]) F31.9 [id number] Bipolar 1 disorder Problem 03/26/2020 12:00: 00 AM EST eCW1 ([facility]) F32.2 [id number] Severe depression Problem 03/26/2020 12:00:0 0 AM EST eCW1 ([facility]) Z86.59 [id number] History of bulimia Problem 03/04/2020 1 2:00:00 AM EST eCW1 ([facility]) N87.1 [id number] Dysplasia of cervix, high grade ALFONSO 2 Pro blem 02/13/2020 12:00:00 AM EDT eCW1 ([facility]) Surgeries/Procedures No Information Results ID Date Data Source [id number] 02/06/2021 12:05:00 PM EDT [facility] ital Specimen Comment: Source.............Cer vix;EndocervixSpecimen Comment: LMP / Prev Treat...[place] / BXSpecimen Comment: Dates / Results....LEEP CINII, CINIII, HPV+Specimen Comment: No. of containers..01 ThinPrep Vial Name Value Range Interpretation Code Description Data Gricel rce(s) Supporting Document(s) REFLEX PAP Comment . [facility] The HPV DNA reflex criteria were not met with this specimenresult therefore, no HPV testing was performed.Performed at: [address] [id number] Director: Tristan Bhardwaj MD, Phone: [phone] DIAGNOSIS: Comment . [facility] NEGATIVE FOR INTRAEPITHELIAL LESION OR M ALIGNANCY.REACTIVE CELLULAR CHANGES AND/OR REPAIR ARE PRESENT. SPECIMEN ADEQUACY: Comment . [facility] Satisfactory for evaluation. Endocervic al and/or squamous metaplasticcells (endocervical component) are present. PERFORMED BY: Comment . [facility] Jesenia Srivastava, Event Mgr (ASCP ) ELECTRONICALLY SIGNED BY: Comment . [facility] Tristan Bhardwaj MD, Pathologist . . . [facility] NOTE: Comment . [facility] The Pap smear is a screening test design ed to aid in thedetection of premalignant and malignant conditions of theuterine cervix. It is not a diagnostic procedure andshould not be used as the sole means of detecting cervicalcancer. Both false-positive and false-negative reports dooccur. HPV METHODOLOGY Comment . [facility] This liquid based ThinPrep(R) pap test w as screened withthe use of an image guided system. ID Date Data Source [id number] 02/06/2021 12:05:00 PM EDT [facility] Name Value Range Interpretation Code Description Data Gricel rce(s) Supporting Document(s) IGP,rfx Aptima HPV all Novavax AB [facility] TESTS RESULT FLAG UNI TS REF RANGE LAB Clinician Provided Cytology Information Source.............Cervix;Endocervix LMP / Prev Treat...[place] / BX Dates / Results....LEEP CINII, CINIII, HPV+ No. of containers..01 ThinPrep VialDIAGNOSIS: 01 NEGATIVE FOR INTRAEPITHELIAL LESION OR MALIGNANCY. REACTIVE CELLULAR CHANGES AND/OR REPAIR ARE PRESENT.Specimen adequacy: 01 Satisfactory for evaluation. Endocervical and/or squamous metaplastic cells (endocervical component) are present.Performed by: 01 Jesenia Srivastava, Event Mgr (ASCP)Electronic signed by Tristan Bhardwaj MD, Pathologist. [...] High <-Panic Low,>-Panic High,A-Abnormal,AA-Critical Abnormal Performed at:01 [facility] [place] [address] [phone] Tristan Bhardwaj MD, ID Date Data Source [id number] 02/06/2021 06:09:00 AM EDT [facility] Name Value Range Interpretation Code Description Data Gricel rce(s) Supporting Document(s) CHLAMYDIA TRACHOMATIS, RORO Negative Negative [facility] NEISSERIA GONORRHOEAE, RORO Negative Negative [facility] Performed at: - [facility] [place] [id number] Director: Ester Rock MD, Phone: [phone] ID Date Data Source [id number] 02/06/2021 06:05:00 AM EDT [facility] Name Value Range Interpretation Code Description Data Gricel rce(s) Supporting Document(s) Chlamydia/GC Amplification [facility] TESTS RESULT FLAG UNI TS REF RANGE LAB C trachomatis, RORO Negative (Negative) 01N gonorrhoeae, RORO Negative (Negative) 01 FLAG LEGEND: L-Low Normal,H-High Normal,LL-Alert Low,HH-Alert High <-Panic Low,>-Panic High,A-Abnormal,AA-Critical Abnormal Performed at:01 RN [facility] [address] [phone] Ester Rock MD, ID Date Data Source [id number] 12/22/2020 12:00:00 AM EDT [facility] Name Value Range Interpretation Code Description Data Gricel rce(s) Supporting Document(s) SARS-CoV2 Rapid Antigen Negative [facility] This lab was ordered by [facility] and reported by [facility]. ID Date Data Source [id number] 06/14/2020 08:09:00 AM EST [facility] Name Value Range Interpretation Code Description Data Gricel rce(s) Supporting Document(s) VITAMIN D, 25-HYDROXY 14.3 ng/mL 30.0-100.0 [facility] Vitamin D deficiency has been defined by the [place] of[place]icine and an Endocrine Society practice guideline as alevel of serum 25-OH vitamin D less than 20 ng/mL (1,2).The Endocrine Society went on to further define vitamin Dinsufficiency as a level between 21 and 29 ng/mL (2).1. IOM ([place] of Medicine). 2010. Dietary reference intakes for calcium and D. [place]: The National Academies Press.2. Evgeny MF, Miguel A NC, Tl GERARD, et al. Evaluation, treatment, and prevention of vitamin D deficiency: an Endocrine Society clinical practice guideline. JCEM. 2010; 96(7):1911- 30.Performed at: RN - [facility] [address] [id number] Director: Ester Rock MD, Phone: [phone] ID Date Data Source [id number] 06/14/2020 08:09:00 AM [facility] Name Value Range Interpretation Code Description Data Gricel rce(s) Supporting Document(s) THYROXINE (T4) 6.7 ug/dL 4.5-12.0 [facility] T3 UPTAKE 30 % 24-39 [facility] FREE THYROXINE INDEX 2.0 1.2-4.9 [facility] pital ID Date Data Source [id number] 06/14/2020 08:06:00 AM EST [facility] Name Value Range Interpretation Code Description Data Gricel rce(s) Supporting Document(s) Thyroxine (T4) 6.7 ug/dL 4.5-12.0 [facility] T3 Uptake 30 % 24-39 [facility] Free Thyroxine Index 2.0 1.2-4.9 [facility] ID Date Data Source [id number] 06/14/2020 08:06:00 AM EST [facility] Name Value Range Interpretation Code Description Data Gricel e(s) Supporting Document(s) Vitamin D, 25-Hydroxy 14.3 ng/mL 30.0-100.0 Below low normal [facility] Vitamin D deficiency has been defined by the [place] of[facility] and an Endocrine Society practice guideline as alevel of serum 25-OH vitamin D less than 20 ng/mL (1,2).The Endocrine Society went on to further define vitamin Dinsufficiency as a level between 21 and 29 ng/mL (2).1. IOM ([place] of Medicine). 2010. Dietary reference intakes for calcium and D. [place]: The National Academies Press.2. Evgeny MF, Miguel A DE LEON, Tl GERARD, et al. Evaluation, treatment, and prevention of vitamin D deficiency: an Endocrine Society clinical practice guideline. JCEM. 2010; 96(7):1911-30. ID Date Data Source [id number] 06/13/2020 09:44:00 AM EST [facility] Name Value Range Interpretation Code Description Data Gricel e(s) Supporting Document(s) TSH 1.291 uIU/mL 0.360-3.740 [facility] ID Date Data Source [id number] 06/13/2020 09:32:00 AM EST [facility] Name Value Range Interpretation Code Description Data Gricel rce(s) Supporting Document(s) GLUCOSE 90 mg/dL 74-106 [facility] BLOOD UREA NITROGEN 13 mg/dL 7-18 [facility] ital CREATININE 0.90 mg/dL 0.6-1.0 [facility] SODIUM 140 mmol/L 136-145 [facility] POTASSIUM 4.5 mmol/L 3.5-5.1 [facility] CHLORIDE 102 mmol/L 98-107 [facility] CO2 28 mmol/L 21-32 [facility] CALCIUM 9.3 mg/dL 8.5-10.1 [facility] ANION GAP 10.0 mmol/L 5-12 [facility] GLOMERULAR FILTRATION RATE 73 mL/min [facility] GFR IS CALCULATED IN mL/min/1.73m2 RICA L FUNCTION: >90MILDLY DECREASED: 60-89MILDY TO MODERATELY DECREASED: 45-59 MODERATELY TO SEVERELY DECREASED: 30-44SEVERELY DECREASED: 15-29RENAL FAILURE: <15 AST 27 U/L 15-37 [facility] ALT 51 U/L 12-78 [facility] ALKALINE PHOSPHATASE 86 U/L 46-116 [facility] pital TOTAL BILIRUBIN 0.6 mg/dL 0.2-1.0 [facility] TOTAL PROTEIN 7.6 g/dl 6.4-8.2 [facility] ALBUMIN 4.1 gm/dL 3.4-5.0 [facility] ID Date Data Source [id number] 06/13/2020 09:22:00 AM [facility] Name Value Range Interpretation Code Description Data [facility](s) Supporting Document(s) HGBA1C 5.1 % 3.8-5.6 [facility] Diabetic > or = to 6.5%Prediabetes 5.7-6 .4%Normal <5.7 ESTIMATED AVERAGE GLUCOSE 99.7 mg/dL [facility] ID Date Data Source [id number] 06/13/2020 09:01:00 AM [facility] Name Value Range Interpretation Code Description Data [facility]) WHITE BLOOD COUNT 7.8 K/mm3 4.0-10.0 [facility] al RED BLOOD COUNT 4.75 M/mm3 4.00-5.50 [facility] HEMOGLOBIN 15.0 gm/dL 12.0-16.0 [facility] HEMATOCRIT 44.1 % 36.0-48.8 [facility] MEAN CELL VOLUME 92.8 fl 80-96 [facility] MEAN CORPUSCULAR HEMOGLOBIN 31.6 pg 27.0-31.0 H [facility] MEAN CORPUSCULAR HGB CONC 34.0 g/dl 32.0-36.0 [facility] RED CELL DISTRIBUTION WIDTH 12.9 % 10.0-14.5 [facility] PLATELET COUNT 200 K/mm3 172-450 [facility] ID Date Data Source [id number] 05/09/2020 07:31:00 AM [facility] DATE OF OPERATION: 05/08/2020 PREOPER ATIVE DIAGNOSIS: Elective sterilization. POSTOPERATIVE DIAGNOSIS: Same. SURGEON: Estela Hernandez M.D. JUNIOR ANALYST: None. ANESTHESIA: Dr. Gamez PROCEDURE: Laparoscopic bilateral [...] is then withdrawn, and the Filshie clip pie maker was passed. Beginning on the right, the [...] Name Value Range Interpretation Code Description Data [facility](s) Supporting Document(s) ID Date Data Source [id number] 05/08/2020 07:50:00 AM [facility] TSYSORDER URINE SPECIMEN COLLECTED AT 07 50 Name Value Range Interpretation Code Description Data [facility](s) Supporting Document(s) HCG URINE NEGATIVE NEGATIVE [facility] ID Date Data Source [id number] 05/08/2020 07:59:00 AM [facility] TSYSORDER COLLECTED BY LAB Name Value Range Interpretation Code Description Data [facility](s) Supporting Document(s) WHITE BLOOD COUNT 9.7 K/mm3 4.0-10.0 [facility] al RED BLOOD COUNT 4.72 M/mm3 4.00-5.50 [facility] HEMOGLOBIN 14.8 gm/dL 12.0-16.0 [facility] HEMATOCRIT 43.2 % 36.0-48.8 [facility] MEAN CELL VOLUME 91.5 fl 80-96 [facility] MEAN CORPUSCULAR HEMOGLOBIN 31.4 pg 27.0-31.0 H [facility] MEAN CORPUSCULAR HGB CONC 34.3 g/dl 32.0-36.0 [facility] RED CELL DISTRIBUTION WIDTH 12.7 % 10.0-14.5 [facility] PLATELET COUNT 214 K/mm3 172-450 [facility] ID Date Data Source [id number] 05/03/2020 08:00:00 AM EST [facility] Name Value Range Interpretation Code Description Data Gricel rce(s) Supporting Document(s) SARS coronavirus 2 RNA Not Detected [facility] [place] This lab was ordered by [facility] a nd reported by [facility]. ID Date Data Source [id number] 05/05/2020 06:36:00 AM EST [facility] Name Value Range Interpretation Code Description Data Gricel rce(s) Supporting Document(s) SARS COV2 [facility] Not Detected Not Detected [facility] This nucleic acid amplification test was developed [...] SARS-CoV-2 virusand/or diagnosis of COVID-19 infection under guujvsm108(b)(1) of the Act, 21 U.S.C. 360bbb-3(b) (1), [...] in this assay. ID Date Data Source [id number] 05/05/2020 06:35:00 AM EST [facility] Name Value Range Interpretation Code Description Data Gricel rce(s) Supporting Document(s) SARS-CoV-2, RORO Not Detected Not Detected [facility] This nucleic acid amplification test was developed and its performancecharacteristics determined by [facility]. Nucleic acidamplification tests include PCR and [...] in this assay. ID Date Data Source [id number] 05/05/2020 06:35:00 AM [facility] Name Value Range Interpretation Code Description Data Gricel rce(s) Supporting Document(s) [facility]patient [facility] Received ID Date Data Source [id number] 05/06/2020 12:05:00 PM [facility] ital Specimen Comment: Source.............Cer vix;EndocervixSpecimen Comment: LMP / Prev Treat...[id number] Comment: Dates / Results....LEEPSpecimen Comment: No. of containers..01 ThinPrep Vial Name Value Range Interpretation Code Description Data Gricel rce(s) Supporting Document(s) REFLEX PAP Comment . [facility] The HPV DNA reflex criteria were not met with this specimenresult therefore, no HPV testing was performed.Performed at: [address] [id number] Director: Tristan Bhardwaj MD, Phone: [phone] DIAGNOSIS: Comment . [facility] NEGATIVE FOR INTRAEPITHELIAL LESION OR M ALIGNANCY.REACTIVE CELLULAR CHANGES AND/OR REPAIR ARE PRESENT.THIS SPECIMEN WAS RESCREENED PART OF OUR WRAPPER STITCHER PROGRAM. SPECIMEN ADEQUACY: Comment . [facility] Satisfactory for evaluation. Endocervic al and/or squamous metaplasticcells (endocervical component) are present. PERFORMED BY: Comment . [facility] Rosie Becerril Event Mgr (ASCP) QC REVIEWED BY: Comment . [facility] Mckayla Lange Event Mgr (ASCP) ELECTRONICALLY SIGNED BY: Tj Johnson [facility] Tristan Bhardwaj MD, Pathologist . . . [facility] NOTE: Comment . [facility] The Pap smear is a screening test design ed to aid in thedetection of premalignant and malignant conditions of theuterine cervix. It is not a diagnostic procedure andshould not be used as the sole means of detecting cervicalcancer. Both false-positive and false-negative reports dooccur. HPV METHODOLOGY Comment . [facility] This liquid based ThinPrep(R) pap test w as screened withthe use of an image guided system. ID Date Data Source [id number] 05/06/2020 12:05:00 PM EST [facility] Name Value Range Interpretation Code Description Data Gricel rce(s) Supporting Document(s) IGP,rfx Aptima HPV all Novavax AB [facility] TESTS RESULT FLAG UNI TS REF RANGE LAB Clinician Provided Cytology Information Source.............Cervix;Endocervix LMP / Prev Treat...[id number] Dates / Results....LEEP No. of containers..01 ThinPrep VialDIAGNOSIS: 01 NEGATIVE FOR INTRAEPITHELIAL LESION OR MALIGNANCY. REACTIVE CELLULAR CHANGES AND/OR REPAIR ARE PRESENT. THIS SPECIMEN WAS RESCREENED PART OF OUR WRAPPER STITCHER PROGRAM.Specimen adequacy: 01 Satisfactory for evaluation. Endocervical and/or squamous metaplastic cells (endocervical component) are present.Performed by: Sirena Becerril Event Mgr (ASCP)QC reviewed by: Sirena Lange Event Mgr (ASCP)Electronic signed by 01 Tristan Bhardwaj MD, [...] Low,HH-Alert High <-Panic Low,>-Panic High,A-Abnormal,AA-Critical Abnormal Performed at:[address] [place] [id number] Tristan Bhardwaj MD, ID Date Data Source PAP REFLEX HPV 05/01/2020 12:00:00 AM EST eCW1 ([facility]) Name Value Range Interpretation Code Description Data Gricel rce(s) Supporting Document(s) Comment RECOMMENDATION: eCW1 ([facility]) Comment ELECTRONICALLY SIGNED BY: eCW1 ([facility]) Comment PATHOLOGIST PROVIDED ICD1 0: eCW1 ([facility]) Comment . REFLEX PAP eCW1 ([facility]) Comment . PERFORMED BY: eCW1 ([facility]) Comment . DIAGNOSIS: eCW1 ([facility]) . . . eCW1 ([facility]) Comment . SPECIMEN ADEQUACY: eCW1 ([facility]) Comment . NOTE: eCW1 ([facility]) ID Date Data Source [id number] 04/27/2020 11:14:00 AM EST [facility] [...] rce(s) Supporting Document(s) ID Date Data Source [id number] 04/27/2020 11:02:00 AM EST [facility] Patient: AZAEL HUTTON Observation Report - Physicians/[facility].VisitID: [id number] [place] [address] [phone], FRegistration Date/Time: 04/27/2020 09:41 Weight:68 kg (S). Height/Length:62 inches (S). BMI:27.4 (Electronically signed by Fracisco Larkin PA-C 04/27/2020 10:42) Name Value Range Interpretation Code Description Data Gricel rce(s) Supporting Document(s) ID Date Data Source US PELVIC COMPLETE TRANS ABDOMEN - [id number] 02/21/2020 05:49:47 AM EDT eCW1 ([facility]) Name Value Range Interpretation Code Description Data Gricel rce(s) Supporting Document(s) US PELVIC COMPLETE TRANS ABDOMEN - [id number] eCW1 ([facility]) ID Date Data Source [id number] 02/16/2020 09:27:00 AM EDT [facility] [...] Current Smoker completed Curre nt Smoker eCW1 ([facility]) Smoking 05/23/2020 12:00:00 AM EST Current Smoker completed Curre nt Smoker eCW1 ([facility]) Smoking 05/23/2020 12:00:00 AM EST Current Smoker completed Curre nt Smoker eCW1 ([facility]) Smoking 05/01/2020 12:00:00 AM EST Current Smoker completed Curre nt Smoker eCW1 ([facility]) Smoking 04/29/2020 12:00:00 AM EST Current Smoker completed Curre nt Smoker eCW1 ([facility]) Smoking 03/27/2020 12:00:00 AM EST Current Smoker completed Curre nt Smoker eCW1 ([facility]) Vital Signs ID Date Data Source UNK Name Value Range Interpretation Code Description Data Source(s) Body height 62 [in_i] 62 [in_i] eCW1 ([facility]) Body weight 147.6 [lb_av] 147.6 [lb_av] eCW1 ([facility]) Body mass index (BMI) [Ratio] 26.99 kg/m2 26.99 kg/m2 eCW1 ([facility]) Heart rate 99 /min 99 /min eCW1 ([facility] [place]) Respiratory rate 16 /min 16 /min eCW1 ([facility]) Oxygen saturation in Arterial blood by Pulse oximetry 100 % 100 % eCW1 ([facility]) Body height 62 [in_i] 62 [in_i] eCW1 ([facility]) Body weight 148.8 [lb_av] 148.8 [lb_av] eCW1 ([facility]) Body mass index (BMI) [Ratio] 27.21 kg/m2 27.21 kg/m2 eCW1 ([facility]) Heart rate 75 /min 75 /min eCW1 ([facility] [place]) Respiratory rate 16 /min 16 /min eCW1 ([facility]) Oxygen saturation in Arterial blood by Pulse oximetry 98 % 98 % eCW1 ([facility]) Body height 62 [in_i] 62 [in_i] eCW1 ([facility]) Body weight 145.2 [lb_av] 145.2 [lb_av] eCW1 ([facility]) Body mass index (BMI) [Ratio] 26.55 kg/m2 26.55 kg/m2 eCW1 ([facility]) Heart rate 90 /min 90 /min eCW1 ([facility] [place]) Respiratory rate 16 /min 16 /min eCW1 ([facility]) Oxygen saturation in Arterial blood by Pulse oximetry 98 % 98 % eCW1 ([facility]) Body height 62 [in_i] 62 [in_i] eCW1 ([facility]) Body weight 144.8 [lb_av] 144.8 [lb_av] eCW1 ([facility]) Body mass index (BMI) [Ratio] 26.48 kg/m2 26.48 kg/m2 eCW1 ([facility]) Body temperature 97.7 [degF] 97.7 [degF] eCW1 ( [facility]) Heart rate 91 /min 91 /min eCW1 ([facility] [place]) Respiratory rate 18 /min 18 /min eCW1 ([facility]) Oxygen saturation in Arterial blood by Pulse oximetry 98 % 98 % eCW1 ([facility]) Body height 62 [in_i] 62 [in_i] eCW1 ([facility]) Body weight 138.0 [lb_av] 138.0 [lb_av] eCW1 ([facility]) Body mass index (BMI) [Ratio] 25.24 kg/m2 25.24 kg/m2 eCW1 ([facility]) Body temperature 98.0 [degF] 98.0 [degF] eCW1 ( [facility]) Heart rate 109 /min 109 /min eCW1 ([facility] [place]) Respiratory rate 16 /min 16 /min eCW1 ([facility]) Oxygen saturation in Arterial blood by Pulse oximetry 97 % 97 % eCW1 ([facility]) Body height 62 [in_i] 62 [in_i] eCW1 ([facility]) Body weight 139.4 [lb_av] 139.4 [lb_av] eCW1 ([facility]) Body mass index (BMI) [Ratio] 25.49 kg/m2 25.49 kg/m2 eCW1 ([facility]) Heart rate 110 /min 110 /min eCW1 ([facility] [place]) Respiratory rate 16 /min 16 /min eCW1 ([facility]) Oxygen saturation in Arterial blood by Pulse oximetry 97 % 97 % eCW1 ([facility]) Patient Treatment Plan of Care Planned Activity Planned Date Details Description Data Source (s) Metformin hydrochloride 500 MG Oral Tablet 03/14/2021 12:00:[address] eCW1 ([facility]) [place] Carbonate 300 MG Oral Tablet 11/15/2020 12:00:00 AM EDT eCW1 ([facility]) Ergocalciferol [id number] UNT Oral Capsule 06/21/2020 12:00:00 AM EST eCW1 ([facility]) lamotrigine 200 MG Oral Tablet 06/07/2020 12:00:00 AM EST eCW1 ([facility]) Acetaminophen 325 MG / Oxycodone Hydrochloride 5 MG Or al Tablet [Percocet] 05/08/2020 12:00:00 AM EST eCW1 ([facility]) Lorazepam 0.5 MG Oral Tablet [Ativan] 05/06/2020 12:00:00 AM EST eCW1 ([facility]) Trazodone Hydrochloride 50 MG Oral Tablet 04/29/2020 12:00:00 AM ES T eCW1 ([facility]) Fluoxetine 10 MG Oral Capsule [Prozac] 03/04/2020 12:00:00 AM EST eCW1 ([facility]) Fluoxetine 10 MG Oral Capsule [Prozac] 03/04/2020 12:00:00 AM EST eCW1 ([facility]) Fluoxetine 10 MG Oral Capsule [Prozac] 03/04/2020 12:00:00 AM EST eCW1 ([facility]) Desogestrel-Ethinyl Estradiol 0.15-30 MG-MCG 02/29/2020 12:00:00 AM EST eCW1 ([facility])
== END 2021-03-31 23:09 | disposition left against medical advice (07) ==
LOC: M ED 20:02
DX: Z53.21 Procedure and treatment not carried out due to patient leaving prior to being seen by health care provider (principal)

== ENCOUNTER → 2021-05-30 | Outpatient (CLI) | payer OTHER ==
[~2021-05-30] MED LIST changes: +ERGO500029 PO; +LITH300T2 PO; +METF-839 PO
[2021-05-30 11:53] LABS: APPEARANCE, URINE HAZY (CLEAR); BACTERIA, URINE AUTO NEGATIVE (NEGATIVE); BILIRUBIN, URINE AUTO NEGATIVE (NEGATIVE); BLOOD, URINE BLOOD NEGATIVE (NEGATIVE); COLOR, URINE YELLOW (YELLOW); GLUCOSE, URINE (UA) AUTO NEGATIVE (NEGATIVE); KETONE, URINE AUTO TRACE mg/dL (NEGATIVE); LEUKOCYTE ESTERASE, URINE AUTO NEGATIVE (NEGATIVE); MUCUS, URINE MODERATE (NEGATIVE); NITRITE, URINE AUTO NEGATIVE (NEGATIVE); PROTEIN, URINE AUTO 1+ mg/dL (NEGATIVE); RBC, URINE AUTO 2 /HPF (0-3); SQUAMOUS EPITHELIAL CELL UR AU 12 /HPF (0-6); UROBILINOGEN, URINE AUTO 0.2 mg/dL (0.0-2.0); WBC, URINE AUTO 2 /HPF (0-3)
[2021-05-30 11:55] LABS: HEMATOCRIT 45.7 % (36.0-47.0); HEMOGLOBIN 15.2 g/dl (12.0-15.5); MEAN CORPUSCULAR HEMOGLOBIN 31.5 pg (27.0-33.0); MEAN CORPUSCULAR HGB CONC 33.3 g/dl (32.0-36.5); MEAN CORPUSCULAR VOLUME 94.6 fl (80.0-96.0); PLATELET COUNT, AUTOMATED 264 10^3/uL (150-450); RED BLOOD COUNT 4.83 10^6/uL (4.00-5.40); WHITE BLOOD COUNT 8.5 10^3/uL (4.0-10.0)
[2021-05-30 12:37] LABS: ALBUMIN 4.3 GM/DL (3.2-5.2); ALT/SGPT 46 U/L (12-78); BILIRUBIN,TOTAL 0.7 MG/DL (0.2-1.0); BLOOD UREA NITROGEN 13 MG/DL (7-18); CALCIUM LEVEL 9.3 MG/DL (8.5-10.1); CARBON DIOXIDE LEVEL 27 MEQ/L (21-32); CHLORIDE LEVEL 106 MEQ/L (98-107); CREATININE FOR GFR 0.72 MG/DL (0.55-1.30); GLOMERULAR FILTRATION RATE > 60.0 (>60); GLUCOSE, FASTING 75 MG/DL (70-100); IRON (FE) 117 UG/DL (50-170); LITHIUM LEVEL 0.46 MEQ/L (0.60-1.20); POTASSIUM SERUM 4.4 MEQ/L (3.5-5.1); SODIUM LEVEL 138 MEQ/L (136-145); TOTAL 25(OH) VITAMIN D 36.7 NG/ML (30.0-100.0); TOTAL PROTEIN 7.7 GM/DL (6.4-8.2)
[2021-05-30 12:57] LABS: HEMOGLOBIN A1c 5.1 %
== END ==
LOC: M WUC 09:14
PROVIDERS: ATTEND Nurse Practitioner Psychiatric/Mental Health
DX: F31.9 Bipolar disorder, unspecified (principal); Z79.899 Other long term (current) drug therapy; E55.9 Vitamin D deficiency, unspecified

== ENCOUNTER → 2021-12-12 | Outpatient (REF) | payer OTHER | LOC: M LAB REF 21:07 | PROVIDERS: ATTEND Physician Assistant | DX: J02.9 Acute pharyngitis, unspecified (principal) ==

== ENCOUNTER 2022-01-31 15:04 | Emergency (ER) | payer OTHER ==
[~2022-01-31] VITALS: Ht 160 cm; Wt 81.9 kg
[2022-01-31] MEDS ORDERED: methocarbamoL 750 MG TAB PO ONE (15:55)
[2022-01-31] MEDS ORDERED: METOCLOPRAMIDE INJ 10MG/2ML VIAL (J2765 PER 1) IV ONE (15:55)
[2022-01-31] MEDS ORDERED: NS 1,000 ML IV ONE (15:55)
[2022-01-31] MEDS ORDERED: KETOROLAC 30 MG/ML 1ML VIAL IV ONE (15:55)
[2022-01-31 16:22] LABS: BASO # 0.1 10^3/uL (0.0-0.2); BASO % 0.8 % (0.0-1.0); EOS # 0.5 10^3/uL (0.0-0.5); EOS % 5.7 % (0.0-3.0); HEMATOCRIT 45.9 % (36.0-47.0); HEMOGLOBIN 15.3 g/dl (12.0-15.5); LYMPH # 3.5 10^3/uL (1.5-5.0); LYMPH % 37.9 % (24.0-44.0); MEAN CORPUSCULAR HGB CONC 33.3 g/dl (32.0-36.5); MEAN CORPUSCULAR VOLUME 93.1 fl (80.0-96.0); MONO # 0.5 10^3/uL (0.0-0.8); MONO % 5.9 % (2.0-8.0); NEUTROPHILS # 4.5 10^3/uL (1.5-8.5); NEUTROPHILS % 49.6 % (36.0-66.0); PLATELET COUNT, AUTOMATED 252 10^3/uL (150-450); RED BLOOD COUNT 4.93 10^6/uL (4.00-5.40); WHITE BLOOD COUNT 9.1 10^3/uL (4.0-10.0)
[2022-01-31 16:48] LABS: ERYTHROCYTE SEDIMENTATION RATE 3 mm/hr (0-20)
[2022-01-31 19:07] VITALS: BP 120/85
== END 2022-01-31 19:09 | disposition home or self-care (01) ==
LOC: M ED 15:04
DX: S13.4XXA Sprain of ligaments of cervical spine, initial encounter (principal); V49.50XA Passenger injured in collision with unspecified motor vehicles in traffic accident, initial encounter; R51.9 Headache, unspecified; F17.200 Nicotine dependence, unspecified, uncomplicated; E28.2 Polycystic ovarian syndrome; Z88.6 Allergy status to analgesic agent; Z88.5 Allergy status to narcotic agent; Z79.899 Other long term (current) drug therapy; Z79.891 Long term (current) use of opiate analgesic; Y92.9 Unspecified place or not applicable; Y93.9 Activity, unspecified; Y99.0 Civilian activity done for income or pay
CPT/HCPCS: 70450; 71111; 72125; 80047; 84702; 85025; 85652; 86140; 96361; 96374; 99284; J1885; J2765

== ENCOUNTER → 2022-05-06 | Outpatient (REF) | payer OTHER ==
[2022-05-06 13:26] LABS: ALBUMIN 4.2 G/DL (3.2-5.2); ALKALINE PHOSPHATASE 80 U/L (46-116); ALT/SGPT 46 U/L (7.0-40); AST/SGOT 30 U/L (<34); BILIRUBIN,TOTAL 0.3 MG/DL (0.3-1.2); BLOOD UREA NITROGEN 9 MG/DL (9-23); CALCIUM LEVEL 9.9 MG/DL (8.5-10.1); CARBON DIOXIDE LEVEL 28 MMOL/L (20-31); CHLORIDE LEVEL 105 MMOL/L (98-107); CHOLESTEROL LEVEL 165 MG/DL (<200); CREATININE FOR GFR 0.74 MG/DL (0.55-1.30); GLOMERULAR FILTRATION RATE > 60.0 (>60); GLUCOSE, FASTING 86 MG/DL (60-100); HDL CHOLESTEROL 40.2 MG/DL (>40); LDL CHOLESTEROL 80.6 MG/DL (<100); NON-HDL-C 125 MG/DL; POTASSIUM SERUM 4.5 MMOL/L (3.5-5.1); SODIUM LEVEL 138 MMOL/L (136-145); TOTAL PROTEIN 7.3 G/DL (5.7-8.2); TRIGLYCERIDES LEVEL 221 MG/DL (<150)
== END ==
LOC: M LAB REF 12:13
PROVIDERS: ATTEND Nurse Practitioner Family
DX: E78.5 Hyperlipidemia, unspecified (principal); E28.2 Polycystic ovarian syndrome

== ENCOUNTER 2022-12-01 12:39 | Emergency (ER) | payer OTHER ==
[~2022-12-01] VITALS: Ht 160 cm; Wt 81.9 kg
[2022-12-01] MEDS ORDERED: SPIR-10 PO (13:35)
[2022-12-01] MEDS ORDERED: LEXA1TAB PO (13:35)
[2022-12-01] MEDS ORDERED: ABIL10TA9 PO (13:35)
[2022-12-01] MEDS ORDERED: LAMO100T80 PO (13:35)
[2022-12-01] MEDS ORDERED: LITH300C PO (13:35)
[2022-12-01] MEDS ORDERED: SIMV10TA21 PO (13:35)
[2022-12-01 15:41] LABS: BASO % 0.4 % (0.0-1.0); EOS # 0.3 10^3/uL (0.0-0.5); EOS % 2.3 % (0.0-3.0); HEMATOCRIT 49.7 % (36.0-47.0); HEMOGLOBIN 16.8 g/dl (12.0-15.5); LYMPH # 3.7 10^3/uL (1.5-5.0); LYMPH % 34.3 % (24.0-44.0); MEAN CORPUSCULAR HEMOGLOBIN 31.2 pg (27.0-33.0); MEAN CORPUSCULAR HGB CONC 33.8 g/dl (32.0-36.5); MEAN CORPUSCULAR VOLUME 92.2 fl (80.0-96.0); MONO # 0.6 10^3/uL (0.0-0.8); MONO % 5.7 % (2.0-8.0); NEUTROPHILS # 6.2 10^3/uL (1.5-8.5); NEUTROPHILS % 57.1 % (36.0-66.0); PLATELET COUNT, AUTOMATED 250 10^3/uL (150-450); RED BLOOD COUNT 5.39 10^6/uL (4.00-5.40); WHITE BLOOD COUNT 10.8 10^3/uL (4.0-10.0)
[2022-12-01 16:01] LABS: LIPASE 50 U/L (12-53)
[2022-12-01 16:04] LABS: ALBUMIN 4.7 G/DL (3.2-5.2); ALKALINE PHOSPHATASE 90 U/L (46-116); ALT/SGPT 61 U/L (7.0-40); AST/SGOT 28 U/L (<34); BILIRUBIN,DIRECT 0.2 MG/DL (<0.4); BILIRUBIN,TOTAL 0.7 MG/DL (0.3-1.2); BLOOD UREA NITROGEN 11 MG/DL (9-23); CALCIUM LEVEL 9.7 MG/DL (8.5-10.1); CARBON DIOXIDE LEVEL 26 MMOL/L (20-31); CHLORIDE LEVEL 104 MMOL/L (98-107); CREATININE FOR GFR 0.73 MG/DL (0.55-1.30); GLOMERULAR FILTRATION RATE > 60.0 (>60); GLUCOSE, FASTING 82 MG/DL (60-100); POTASSIUM SERUM 4.4 MMOL/L (3.5-5.1); SODIUM LEVEL 138 MMOL/L (136-145); TOTAL PROTEIN 8.4 G/DL (5.7-8.2)
[2022-12-01 16:08] LABS: HCG, SERUM QUALITATIVE NEGATIVE (NEGATIVE)
[2022-12-01] MEDS: ONDANSETRON 4MG 2ML VIAL IV ONE (16:41)
[2022-12-01] MEDS: NS 1,000 ML IV ONE (16:42)
[2022-12-01] MEDS: KETOROLAC 30 MG/ML 1ML VIAL IV ONE (16:42)
[2022-12-01 17:17] VITALS: TEMP 98.2
[2022-12-01] MEDS: cefTRIAXone SOD 1 GM in D5W MINI-BAG PLUS 50 ML IV ONE (17:46)
[2022-12-01] MEDS ORDERED: CEFD300C41 PO (19:13)
[2022-12-01] MEDS ORDERED: KETO10TAB PO (19:13)
[2022-12-01] MEDS ORDERED: ONDA4TAB6 PO (19:13)
[2022-12-01 19:28] VITALS: BP 133/74; O2SAT 99
[2022-12-03] MEDS ORDERED: SULF1TAB23 PO (13:41)
== END 2022-12-01 19:31 | disposition home or self-care (01) ==
LOC: M ED 12:39
DX: N39.0 Urinary tract infection, site not specified (principal); N20.0 Calculus of kidney; E28.2 Polycystic ovarian syndrome; F17.200 Nicotine dependence, unspecified, uncomplicated; Z88.5 Allergy status to narcotic agent; Z88.6 Allergy status to analgesic agent; Z79.2 Long term (current) use of antibiotics; Z79.83 Long term (current) use of bisphosphonates; Z79.899 Other long term (current) drug therapy
CPT/HCPCS: 74176; 80048; 80076; 81001; 83690; 84703; 85025; 87088; 87186; 96365; 96375; 99283; J0696; J1885; J2405

== ENCOUNTER 2022-12-28 14:05 | Observation (INO) | payer OTHER ==
[~2022-12-28] VITALS: Ht 160 cm; Wt 83.7 kg
[~2022-12-28 14:05] MED LIST changes: +ABIL10TA9 PO; +CEFD300C41 PO; +KETO10TAB PO; +LAMO100T80 PO; +LEXA1TAB PO; +LITH300C PO; +ONDA4TAB6 PO; +SIMV10TA21 PO; +SPIR-10 PO; +SULF1TAB23 PO
[2022-12-28] MEDS ORDERED: CHOL125C5 PO (14:14)
[2022-12-28 15:20] LABS: BASO % 0.3 % (0.0-1.0); EOS # 0.1 10^3/uL (0.0-0.5); EOS % 0.4 % (0.0-3.0); HEMATOCRIT 49.2 % (36.0-47.0); HEMOGLOBIN 16.3 g/dl (12.0-15.5); LYMPH # 2.2 10^3/uL (1.5-5.0); LYMPH % 17.7 % (24.0-44.0); MEAN CORPUSCULAR HEMOGLOBIN 30.9 pg (27.0-33.0); MEAN CORPUSCULAR HGB CONC 33.1 g/dl (32.0-36.5); MEAN CORPUSCULAR VOLUME 93.4 fl (80.0-96.0); MONO # 0.4 10^3/uL (0.0-0.8); MONO % 3.2 % (2.0-8.0); NEUTROPHILS # 9.8 10^3/uL (1.5-8.5); NEUTROPHILS % 78.1 % (36.0-66.0); PLATELET COUNT, AUTOMATED 242 10^3/uL (150-450); RED BLOOD COUNT 5.27 10^6/uL (4.00-5.40); WHITE BLOOD COUNT 12.5 10^3/uL (4.0-10.0)
[2022-12-28 15:30] LABS: APPEARANCE, URINE CLOUDY (CLEAR); BACTERIA, URINE AUTO NEGATIVE (NEGATIVE); BILIRUBIN, URINE AUTO NEGATIVE (NEGATIVE); BLOOD, URINE BLOOD 3+ (NEGATIVE); COLOR, URINE YELLOW (YELLOW); GLUCOSE, URINE (UA) AUTO NEGATIVE (NEGATIVE); KETONE, URINE AUTO NEGATIVE (NEGATIVE); LEUKOCYTE ESTERASE, URINE AUTO 1+ (NEGATIVE); MUCUS, URINE LARGE (NEGATIVE); NITRITE, URINE AUTO NEGATIVE (NEGATIVE); PROTEIN, URINE AUTO 2+ mg/dL (NEGATIVE); RBC, URINE AUTO TNTC /HPF (0-3); SPECIFIC GRAVITY URINE AUTO 1.018 (1.002-1.035); SQUAMOUS EPITHELIAL CELL UR AU 6 /HPF (0-6); UROBILINOGEN, URINE AUTO 0.2 mg/dL (0.0-2.0); WBC, URINE AUTO 113 /HPF (0-3)
[2022-12-28 15:47] LABS: ALBUMIN 4.5 G/DL (3.2-5.2); BILIRUBIN,DIRECT 0.2 MG/DL (<0.4); BILIRUBIN,TOTAL 0.6 MG/DL (0.3-1.2); TOTAL PROTEIN 7.9 G/DL (5.7-8.2)
[2022-12-28] MEDS ORDERED: ONDANSETRON 4MG 2ML VIAL IV ONE (16:25)
[2022-12-28] MEDS ORDERED: NS 1,000 ML IV ONE (16:25)
[2022-12-28] MEDS ORDERED: KETOROLAC 30 MG/ML 1ML VIAL IV ONE (16:25)
[2022-12-28] MEDS ORDERED: ISOVUE-370 76% 100ML VIAL As Ordered ONE (16:26)
[2022-12-28] MEDS ORDERED: cefTRIAXone SOD 1 GM in D5W MINI-BAG PLUS 50 ML IV ONE (17:15)
[2022-12-28] MEDS ORDERED: **NOTE PATIENT COMMENT** MISC XX SCH (17:50)
[2022-12-28] MEDS: NS 1,000 ML IV SCH ×2 (17:50→20:35)
[2022-12-28] MEDS ORDERED: KETOROLAC 30 MG/ML 1ML VIAL IV PRN (17:55)
[2022-12-28] MEDS ORDERED: ACETAMINOPHEN 500 MG TAB PO PRN (17:55)
[2022-12-28 18:20] LABS: RSV AMPLIFICATION NEGATIVE (NEGATIVE)
[2022-12-28] MEDS ORDERED: MED REC COMMENT (18:29)
[2022-12-28] MEDS ORDERED: MED REC CURRENTLY UNOBTAINABLE XX SCH (18:30)
[2022-12-28] MEDS ORDERED: LAMO200T3 PO (18:44)
[2022-12-28] MEDS ORDERED: HOME MED LIST COMPLETE! XX SCH (18:50)
[2022-12-28] MEDS ORDERED: DEXTROSE 50% 50ML SYRINGE IV PRN (19:00)
[2022-12-28] MEDS ORDERED: GLUCAGON INJ 1MG VIAL SC PRN (19:00)
[2022-12-28] MEDS ORDERED: GLUCOSE 4GM CHEW TABLET PO PRN (19:00)
[2022-12-28 20:15] VITALS: BP 126/72; TEMP 97.9; O2SAT 97
[2022-12-28] MEDS: ACETAMINOPHEN 500 MG TAB PO PRN (20:36)
[2022-12-28] MEDS ORDERED: INSULIN LISPRO (NovoLOG) PER UNIT SC SCH (21:00)
[2022-12-28] MEDS ORDERED: TAMSULOSIN 0.4 MG CAP PO SCH (21:00)
[2022-12-28] MEDS ORDERED: CALCIUM CARBONATE 500 MG CHEW U/D PO PRN (21:20)
[2022-12-29] VITALS (8 sets, daily range): BP systolic 112–124; BP diastolic 57–75; TEMP 97–98.5; O2SAT 94–97
[2022-12-29] MEDS: NS 1,000 ML IV SCH ×3 (03:45→20:30)
[2022-12-29 06:28] LABS: HEMATOCRIT 40.4 % (36.0-47.0); MEAN CORPUSCULAR HEMOGLOBIN 31.9 pg (27.0-33.0); MEAN CORPUSCULAR HGB CONC 33.7 g/dl (32.0-36.5); MEAN CORPUSCULAR VOLUME 94.8 fl (80.0-96.0); PLATELET COUNT, AUTOMATED 201 10^3/uL (150-450); RED BLOOD COUNT 4.26 10^6/uL (4.00-5.40); WHITE BLOOD COUNT 8.3 10^3/uL (4.0-10.0)
[2022-12-29 06:31] LABS: HEMOGLOBIN 13.6 g/dl (12.0-15.5)
[2022-12-29 06:46] LABS: BLOOD UREA NITROGEN 10 MG/DL (9-23); CARBON DIOXIDE LEVEL 24 MMOL/L (20-31); CHLORIDE LEVEL 109 MMOL/L (98-107); CREATININE FOR GFR 0.68 MG/DL (0.55-1.30); GLOMERULAR FILTRATION RATE > 60.0 (>60); GLUCOSE, FASTING 84 MG/DL (60-100); SODIUM LEVEL 142 MMOL/L (136-145)
[2022-12-29] MEDS ORDERED: INSULIN LISPRO (NovoLOG) PER UNIT SC SCH (07:30)
[2022-12-29] MEDS: ACETAMINOPHEN 500 MG TAB PO PRN (08:30)
[2022-12-29] MEDS ORDERED: ESCITALOPRAM OXALATE 10 MG TAB (LEXAPRO) PO SCH (09:00)
[2022-12-29] MEDS ORDERED: SIMVASTATIN 10 MG TAB PO SCH (09:00)
[2022-12-29] MEDS ORDERED: SPIRONOLACTONE 25 MG TAB PO SCH (09:00)
[2022-12-29] MEDS ORDERED: ENOXAPARIN 40MG/0.4ML SYRINGE (J1650 PER 10MG) SC SCH (09:00)
[2022-12-29] MEDS ORDERED: lamoTRIgine 100MG TAB PO SCH (09:00)
[2022-12-29] MEDS ORDERED: LITHIUM CARBONATE 300 MG CAP PO SCH (09:00)
[2022-12-29] MEDS ORDERED: ARIPiprazole 10 MG TAB PO SCH (09:00)
[2022-12-29] MEDS ORDERED: ONDANSETRON 4MG 2ML VIAL As Ordered ONE (15:12)
[2022-12-29] MEDS ORDERED: propofoL 200 MG/20 ML VIAL As Ordered ONE (15:12)
[2022-12-29] MEDS ORDERED: LIDOCAINE 2% 100MG/5ML SDV (FOR ANES.) As Ordered ONE (15:12)
[2022-12-29] MEDS ORDERED: MIDAZOLAM INJ 2MG/2ML VIAL As Ordered ONE (15:12)
[2022-12-29] MEDS ORDERED: ISOVUE-300 61% 100ML VIAL As Ordered ONE (15:19)
[2022-12-29] MEDS ORDERED: dexmedeTOMIDine (4MCG/ML)200MCG/50ML BTL (PRECEDEX) As Ordered ONE (15:23)
[2022-12-29] MEDS ORDERED: fentaNYL 100 MCG/2 ML INJECTION As Ordered ONE (16:20)
[2022-12-29] MEDS ORDERED: cefTRIAXone SOD 1GM VIAL As Ordered ONE (16:22)
[2022-12-29] MEDS ORDERED: ACETAMINOPHEN 1000MG 100ML IV BAG As Ordered ONE (16:35)
[2022-12-29] MEDS ORDERED: SCOPOLAMINE 1MG TRANSDERMAL PATCH TOP ONE (17:00)
[2022-12-29] MEDS ORDERED: oxyBUTYnin 5 MG TAB PO PRN (17:50)
[2022-12-29] MEDS ORDERED: PHENAZOPYRIDINE 100 MG TAB PO PRN (17:50)
[2022-12-29] MEDS ORDERED: PHEN1TAB73 PO (18:00)
[2022-12-29] MEDS ORDERED: cefTRIAXone SOD 1 GM in D5W MINI-BAG PLUS 50 ML IV SCH (18:00)
[2022-12-29] MEDS ORDERED: ACET-683 PO (18:00)
[2022-12-29] MEDS ORDERED: LEVO1TAB40 PO (18:00)
[2022-12-29] MEDS ORDERED: OXYB5TAB10 PO (18:00)
[2022-12-30] MEDS ORDERED: LevoFLOXacin 750 MG TABLET PO SCH (06:00)
== END 2022-12-29 20:45 | disposition home or self-care (01) ==
LOC: M ED 14:05 → M ED INP 14:06 → M PED 20:13
PROVIDERS: ADMIT Family Medicine; ATTEND Family Medicine
DX: N20.1 Calculus of ureter (principal); N11.1 Chronic obstructive pyelonephritis; K76.0 Fatty (change of) liver, not elsewhere classified; I10 Essential (primary) hypertension; E78.5 Hyperlipidemia, unspecified; F43.10 Post-traumatic stress disorder, unspecified; F31.9 Bipolar disorder, unspecified; F32.A Depression, unspecified; F60.3 Borderline personality disorder; Z79.899 Other long term (current) drug therapy; Z79.84 Long term (current) use of oral hypoglycemic drugs; Z88.5 Allergy status to narcotic agent; Z88.8 Allergy status to other drugs, medicaments and biological substances
CPT/HCPCS: 36415; 52332; 74177; 76000; 80047; 80048; 80076; 81001; 83690; 84702; 85025; 85027; 87040; 87086; 87631; 96365; 96375; 99284; C1769; C2617; J0131; J0696; J1100; J1885; J2250; J2405; J3010; Q9967

== ENCOUNTER → 2023-01-28 | Outpatient (CLI) | payer OTHER ==
[~2023-01-28] MED LIST changes: +ACET-683 PO; +CHOL125C5 PO; +LAMO200T3 PO; +LEVO1TAB40 PO; +MED REC COMMENT; +OXYB5TAB10 PO; +PHEN1TAB73 PO
[2023-01-28 11:22] LABS: HEMATOCRIT 45.7 % (36.0-47.0); HEMOGLOBIN 15.4 g/dl (12.0-15.5); MEAN CORPUSCULAR HEMOGLOBIN 31.6 pg (27.0-33.0); MEAN CORPUSCULAR HGB CONC 33.7 g/dl (32.0-36.5); MEAN CORPUSCULAR VOLUME 93.6 fl (80.0-96.0); PLATELET COUNT, AUTOMATED 260 10^3/uL (150-450); RED BLOOD COUNT 4.88 10^6/uL (4.00-5.40)
[2023-01-28 11:45] LABS: BLOOD UREA NITROGEN 9 MG/DL (9-23); CALCIUM LEVEL 9.3 MG/DL (8.5-10.1); CARBON DIOXIDE LEVEL 26 MMOL/L (20-31); CHLORIDE LEVEL 109 MMOL/L (98-107); CREATININE FOR GFR 0.84 MG/DL (0.55-1.30); GLOMERULAR FILTRATION RATE > 60.0 (>60); GLUCOSE, FASTING 108 MG/DL (60-100); POTASSIUM SERUM 3.6 MMOL/L (3.5-5.1); SODIUM LEVEL 142 MMOL/L (136-145)
== END ==
LOC: M LAB 10:36
PROVIDERS: ATTEND Specialist
DX: Z01.818 Encounter for other preprocedural examination (principal)

== ENCOUNTER 2023-02-11 07:36 | Day surgery (SDC) | payer OTHER ==
[~2023-02-11] VITALS: Ht 157.5 cm; Wt 78.0 kg
[~2023-02-11 07:36] MED LIST changes: -CEFD300C41 PO; +CEFD300C42 PO; -OXYB5TAB10 PO; +OXYB5TAB11 PO; +PREV1CAP PO; +ceFAZolin SOD 2 GM in IV 1 EA IV ONE
[2023-02-11] MEDS ORDERED: LR 1,000 ML IV SCH (08:15)
[2023-02-11] MEDS ORDERED: fentaNYL 100 MCG/2 ML INJECTION As Ordered ONE (08:42)
[2023-02-11] MEDS ORDERED: ONDANSETRON 4MG 2ML VIAL As Ordered ONE (08:43)
[2023-02-11] MEDS ORDERED: LIDOCAINE 2% 100MG/5ML SDV (FOR ANES.) As Ordered ONE (08:43)
[2023-02-11] MEDS ORDERED: propofoL 200 MG/20 ML VIAL As Ordered ONE (08:43)
[2023-02-11] MEDS ORDERED: MIDAZOLAM INJ 2MG/2ML VIAL As Ordered ONE (08:43)
[2023-02-11] MEDS ORDERED: KETOROLAC 60MG 2ML VIAL As Ordered ONE (10:49)
[2023-02-11] MEDS ORDERED: OXYC1TAB23 PO (10:52)
[2023-02-11] MEDS ORDERED: OXYB10TA23 PO (10:52)
[2023-02-11] MEDS ORDERED: FLOM0.4C39 PO (10:52)
[2023-02-11 11:33] VITALS: BP 137/78; TEMP 97.6; O2SAT 100
== END 2023-02-11 11:58 | disposition home or self-care (01) ==
LOC: M SDC 07:36
PROVIDERS: ATTEND Urology
DX: N20.0 Calculus of kidney (principal); E78.00 Pure hypercholesterolemia, unspecified; Z79.899 Other long term (current) drug therapy; Z87.442 Personal history of urinary calculi
CPT/HCPCS: 50590; 74018; J1885; J2250; J2405

== ENCOUNTER → 2023-02-19 | Outpatient (CLI) | payer OTHER ==
[~2023-02-19] MED LIST changes: +FLOM0.4C39 PO; +OXYB10TA23 PO; +OXYC1TAB23 PO; -ceFAZolin SOD 2 GM in IV 1 EA IV ONE
== END ==
LOC: M RAD 08:43
PROVIDERS: ATTEND Specialist
DX: Z01.818 Encounter for other preprocedural examination (principal)

== ENCOUNTER → 2023-12-02 | Outpatient (REF) | payer OTHER ==
[~2023-12-02] MED LIST changes: +CEFD1CAP9 PO; -CEFD300C42 PO; +ONDA-282 PO; -ONDA4TAB6 PO; -OXYB5TAB11 PO; +OXYB5TAB14 PO
[2023-12-02 18:43] LABS: BASO # 0.1 10^3/uL (0.0-0.2); BASO % 0.6 % (0.0-1.0); EOS # 0.3 10^3/uL (0.0-0.5); EOS % 4.3 % (0.0-3.0); HEMOGLOBIN 15.7 g/dl (12.0-15.5); LYMPH # 3.5 10^3/uL (1.5-5.0); MEAN CORPUSCULAR HGB CONC 34.1 g/dl (32.0-36.5); MEAN CORPUSCULAR VOLUME 93.7 fl (80.0-96.0); MONO # 0.4 10^3/uL (0.0-0.8); MONO % 4.7 % (2.0-8.0); NEUTROPHILS # 3.7 10^3/uL (1.5-8.5); NEUTROPHILS % 46.1 % (36.0-66.0); PLATELET COUNT, AUTOMATED 255 10^3/uL (150-450); RED BLOOD COUNT 4.91 10^6/uL (4.00-5.40); WHITE BLOOD COUNT 7.9 10^3/uL (4.0-10.0)
[2023-12-02 19:11] LABS: ALBUMIN 4.2 G/DL (3.2-5.2); ALKALINE PHOSPHATASE 60 U/L (46-116); ALT/SGPT 35 U/L (7.0-40); AST/SGOT 18 U/L (<34); BILIRUBIN,TOTAL 0.5 MG/DL (0.3-1.2); BLOOD UREA NITROGEN 9 MG/DL (9-23); CALCIUM LEVEL 9.4 MG/DL (8.5-10.1); CARBON DIOXIDE LEVEL 27 MMOL/L (20-31); CHLORIDE LEVEL 108 MMOL/L (98-107); CHOLESTEROL LEVEL 205 MG/DL (<200); CHOLESTEROL RISK RATIO 4.46 (<5); CREATININE FOR GFR 0.79 MG/DL (0.55-1.30); GLOMERULAR FILTRATION RATE > 60.0 (>60); GLUCOSE, FASTING 87 MG/DL (60-100); HDL CHOLESTEROL 45.9 MG/DL (>40); LDL CHOLESTEROL 125.5 MG/DL (<100); MAGNESIUM LEVEL 2.1 MG/DL (1.8-2.4); NON-HDL-C 159.1 MG/DL; POTASSIUM SERUM 4.5 MMOL/L (3.5-5.1); SODIUM LEVEL 139 MMOL/L (136-145); TOTAL PROTEIN 7.7 G/DL (5.7-8.2); TRIGLYCERIDES LEVEL 168 MG/DL (<150)
[2023-12-02 19:12] LABS: THYROID STIMULATING HORMONE 2.051 uIU/ML (0.55-4.78)
[2023-12-02 19:24] LABS: HEMOGLOBIN A1c 4.9 % (4.0-6.0)
== END ==
LOC: M LAB REF 17:29
PROVIDERS: ATTEND Nurse Practitioner Family
DX: E66.9 Obesity, unspecified (principal)

== ENCOUNTER → 2024-04-24 | Outpatient (REF) | payer OTHER ==
[2024-04-24 13:44] LABS: ALKALINE PHOSPHATASE 72 U/L (35-104); ALT/SGPT 26 U/L (7.0-40); AST/SGOT 19 U/L (<34); BILIRUBIN,TOTAL 0.4 MG/DL (0.3-1.2); BLOOD UREA NITROGEN 12 MG/DL (9-23); CALCIUM LEVEL 9.8 MG/DL (8.5-10.1); CARBON DIOXIDE LEVEL 25 MMOL/L (20-31); CHLORIDE LEVEL 107 MMOL/L (98-107); CHOLESTEROL LEVEL 221 MG/DL (<200); CHOLESTEROL RISK RATIO 5.01 (<5); CREATININE FOR GFR 0.75 MG/DL (0.55-1.30); GLOMERULAR FILTRATION RATE > 60.0 (>60); GLUCOSE, FASTING 82 MG/DL (60-100); HDL CHOLESTEROL 44.1 MG/DL (>40); LDL CHOLESTEROL 137.7 MG/DL (<100); NON-HDL-C 176.9 MG/DL; POTASSIUM SERUM 4.5 MMOL/L (3.5-5.1); SODIUM LEVEL 141 MMOL/L (136-145); TOTAL PROTEIN 7.5 G/DL (5.7-8.2); TRIGLYCERIDES LEVEL 196 MG/DL (<150)
== END ==
LOC: M LAB REF 12:52
PROVIDERS: ATTEND Nurse Practitioner Family
DX: R79.89 Other specified abnormal findings of blood chemistry (principal)

== ENCOUNTER 2024-06-12 14:36 | Emergency (ER) | payer OTHER ==
[~2024-06-12] VITALS: Ht 157.5 cm; Wt 72.0 kg
[2024-06-12 14:38] VITALS: TEMP 99
[2024-06-12] MEDS ORDERED: ARIP1TAB10 (14:58)
[2024-06-12] MEDS ORDERED: BUPR1TAB52 PO (15:01)
[2024-06-12 20:50] LABS: BASO # 0.1 10^3/uL (0.0-0.2); BASO % 0.6 % (0.0-1.0); EOS # 0.1 10^3/uL (0.0-0.5); EOS % 1.1 % (0.0-3.0); HEMATOCRIT 44.9 % (36.0-47.0); HEMOGLOBIN 15.3 g/dl (12.0-15.5); LYMPH # 3.3 10^3/uL (1.5-5.0); LYMPH % 34.3 % (24.0-44.0); MEAN CORPUSCULAR HEMOGLOBIN 31.2 pg (27.0-33.0); MEAN CORPUSCULAR HGB CONC 34.1 g/dl (32.0-36.5); MEAN CORPUSCULAR VOLUME 91.4 fl (80.0-96.0); MONO # 0.5 10^3/uL (0.0-0.8); MONO % 5.5 % (2.0-8.0); NEUTROPHILS # 5.6 10^3/uL (1.5-8.5); NEUTROPHILS % 58.2 % (36.0-66.0); PLATELET COUNT, AUTOMATED 228 10^3/uL (150-450); RED BLOOD COUNT 4.91 10^6/uL (4.00-5.40); WHITE BLOOD COUNT 9.7 10^3/uL (4.0-10.0)
[2024-06-12] MEDS: CLINDAMYCIN 900 MG in IV 1 EA IV ONE (20:51)
[2024-06-12 21:19] LABS: ALBUMIN 4.2 G/DL (3.2-5.2); ALKALINE PHOSPHATASE 91 U/L (35-104); ALT/SGPT 26 U/L (7.0-40); AST/SGOT 17 U/L (<34); BILIRUBIN,TOTAL 0.6 MG/DL (0.3-1.2); BLOOD UREA NITROGEN 8 MG/DL (9-23); CALCIUM LEVEL 9.8 MG/DL (8.5-10.1); CARBON DIOXIDE LEVEL 27 MMOL/L (20-31); CHLORIDE LEVEL 105 MMOL/L (98-107); CREATININE FOR GFR 0.78 MG/DL (0.55-1.30); GLOMERULAR FILTRATION RATE > 60.0 (>60); GLUCOSE, FASTING 77 MG/DL (60-100); POTASSIUM SERUM 4.2 MMOL/L (3.5-5.1); SODIUM LEVEL 141 MMOL/L (136-145); TOTAL PROTEIN 8.1 G/DL (5.7-8.2)
[2024-06-12] MEDS ORDERED: LIDOCAINE 1% MDV 20ML VIAL IM ONE (21:30)
[2024-06-12] MEDS: LIDOCAINE 1% MDV 20ML VIAL SQ ONE (21:35)
[2024-06-12] MEDS ORDERED: CLEO300C2 PO (21:54)
[2024-06-12 21:55] VITALS: BP 115/73; O2SAT 99
== END 2024-06-12 22:05 | disposition home or self-care (01) ==
LOC: EEVIPCON 14:36 → M ED 14:36
DX: L02.416 Cutaneous abscess of left lower limb (principal); Z86.14 Personal history of Methicillin resistant Staphylococcus aureus infection; Z79.84 Long term (current) use of oral hypoglycemic drugs; Z79.899 Other long term (current) drug therapy; Z88.5 Allergy status to narcotic agent; Z88.6 Allergy status to analgesic agent
CPT/HCPCS: 10060; 80053; 85025; 87040; 87070; 87077; 87186; 96365; 99284; J0737